=== PATIENT | female | born 1950 | race Caucasian/White ===

== ENCOUNTER 2017-11-21 08:00 | Day surgery (SDC) | payer OTHER ==
[2017-11-21 08:37] LABS: Absolute Lymphocytes (CBC) 1.7 K/uL (0.7-4.9); Absolute Monocytes 0.5 K/uL (0.1-1.3); Absolute Neutrophil 4.5 K/uL (1.8-8.0); Basophils % 0.6 % (0-1.3); Eosinophils % 9.4 % (0-4.4); Hematocrit 40.6 % (36.0-45.0); Lymphocytes % 22.1 % (15.3-44.8); MCH 31.2 pg (27.0-35.0); MCV 91.3 fL (80-100); MPV 7.3 fL (7.6-11.3); Monocytes % 7.3 % (3.3-12.3); RBC Red Blood Cell Count 4.45 M/uL (3.86-4.86)
[2017-11-21 08:45] LABS: Bicarbonate 26 mEq/L (21-31); Glucose Level 109 mg/dL (65-120); Sodium Level 139 mEq/L (135-145)
[2017-11-21 08:46] LABS: BUN Blood Urea Nitrogen 15 mg/dL (6-20)
--- NOTE | 2017-11-21 09:03 | RAD REPORT ---
EXAM DESCRIPTION: Bernardo Martines (2 Views)11/21/2017 8:33 am CLINICAL HISTORY: Rectal cancer/preop COMPARISON: October 2017 FINDINGS: The lungs appear clear of acute infiltrate. The heart is normal size IMPRESSION: No acute abnormalities displayed
[2017-11-21] MEDS ORDERED: Ringers Lactate 1,000 ML IV ONE (09:22)
[2017-11-21] MEDS ORDERED: CEFAZOLIN/SWI 1gm 1 GM/10 ML SYR ONE (09:24)
[2017-11-21] MEDS ORDERED: HYDROCODONE/APAP 10/325 TAB ONE (09:45)
[2017-11-21] MEDS ORDERED: LIDOCAINE 2% MPF 5 ML VIAL ONE (09:57)
[2017-11-21] MEDS ORDERED: PROPOFOL 200 MG/20 ML VIAL IV ONE (09:57)
[2017-11-21] MEDS ORDERED: FENTANYL CITR 100 MCG/2 ML ONE (09:58)
[2017-11-21] MEDS ORDERED: NS 0.9% VIAL 10 ML ONE ×2 (09:59→10:09)
[2017-11-21] MEDS ORDERED: LIDOCAINE 1% 20 ML MDV ONE (10:00)
[2017-11-21] MEDS ORDERED: MIDAZOLAM HCL 2 MG/2 ML INJ ONE (10:06)
[2017-11-21] MEDS: HEPARIN 5000 UNIT/ML 1 ML VIAL ONE ×2 (10:35→10:46)
--- NOTE | 2017-11-21 10:43 | EKG ---
Test Date: 2017-11-21 Test Time: 08:13:34 Travel Cota: GABRIEL MEASUREMENT RESULTS: Intervals: Rate: 80 DC: 196 QRSD: 140 QT: 434 QTc: 500 [place]: P: 40 DC: 196 QRS: -18 T: 77 INTERPRETIVE STATEMENTS: Normal sinus rhythm Possible Left atrial enlargement Left bundle branch block Abnormal ECG No previous ECG available for comparison Electronically Signed On 11-21-17 10:43:19 CDT by Jacoby Nielson
[2017-11-21] MEDS ORDERED: EPHEDRINE SULF 50 MG/5 ML SYR ONE (10:50)
--- NOTE | 2017-11-21 10:52 | RAD REPORT ---
EXAM DESCRIPTION: RAD - Fluoroscopy <1 Hour - 11/21/2017 10:47 am CLINICAL HISTORY: Venous catheter insertion. COMPARISON: None. FINDINGS: Fluoroscopic imaging is submitted from placement of a venous catheter. Details of the pro cedure not available.
[2017-11-21] MEDS ORDERED: ONDANSETRON 4 MG/2 ML VIAL ONE (10:54)
--- NOTE | 2017-11-21 11:23 | RAD REPORT ---
EXAM DESCRIPTION: RAD - Chest Single View - 11/21/2017 11:15 am CLINICAL HISTORY: Venous catheter placement. COMPARISON: 11/21/2017 FINDINGS: Portable technique limits examination quality. Right-sided venous catheter has tip in the SVC. Bilateral linear opacities most compatible with atele ctasis. No pneumothorax. The heart is normal in size. No displaced fractures. IMPRESSION: No postprocedure pneumothorax seen.
--- NOTE | 2017-11-21 12:57 | OP ---
Date of Procedure: 11/21/2017 Surgeon: Andres Hogan MD Preoperative Diagnosis: Rectal cancer. Postoperative Diagnosis: Rectal cancer. Procedure: Placement of right IJ Port-A-Cath and interpretation of intraoperative fluoroscopy. Estimated Blood Loss: Minimal. Specimen: None. Findings: Normal anatomy. Anesthesia: General. Complications: None. Disposition: The patient tolerated the procedure in stable condition and taken to recovery in good g eneral condition. Procedure In Detail: The patient was brought to the OR and placed in the supine position. General a nesthesia begun. The patient was prepped and draped in usual sterile fashion. Lidocaine 1% infiltra billy locally. An 18-gauge needle was used to access the right IJ vein. Guidewire was passed. Positi on was confirmed with fluoroscopy. A 3-cm counterincision made on the right anterior chest. Pocket created. Tunneling device used to tunnel the catheter between the 2 wounds. Seldinger technique use d. Tip of the catheter placed in the SVC under fluoroscopy, cut to appropriate size, and attached to the Port-A-Cath device. Then, the Port-A-Cath device was attached to the subcutaneous tissue with 3 -0 Vicryl and then wound closed with 3-0 chromic. Heparin flush used. Good blood flow obtained and packed with heparin as well. Sterile dressing was applied. The patient was awakened and taken to Re covery in good general condition. Chest x-ray has been ordered. Disposition: Home. Condition: Stable. Discharge Instructions: Resume home medications and diet. Activity as tolerated. No heavy lifting. Remove outer dressing in 2 days. Shower. Keep wound clean and dry. Keep Steri-Strips on at all t imes. [facility] as per appointment. Follow up in my office in 2 weeks. Call f or appointment. /MODL Voice ID: [id number] Report ID: [id number]
== END 2017-11-21 12:35 | disposition home or self-care (01) ==
LOC: OR 08:00
PROVIDERS: ATTEND Surgery
PROC: 0JH60WZ Insertion of Totally Implantable Vascular Access Device into Chest Subcutaneous Tissue and Fascia, Open Approach (ICD-10-PCS; principal; 2017-11-21 10:30)
DX: C20 Malignant neoplasm of rectum (principal); E11.9 Type 2 diabetes mellitus without complications; I10 Essential (primary) hypertension; J44.9 Chronic obstructive pulmonary disease, unspecified; F17.200 Nicotine dependence, unspecified, uncomplicated
CPT/HCPCS: 36415; 36561; 71045; 71046; 80048; 82962; 85025; 93005; C1788 ×2; J0690; J1644; J2250; J2405; J3010; 76000

== ENCOUNTER 2017-12-10 16:56 | Inpatient (IN) | payer OTHER ==
[2017-12-10] MEDS ORDERED: NA CHLORIDE 0.9% 1,000 ML ONE ×2 (18:45→19:35)
[2017-12-10] MEDS ORDERED: NA CHLORIDE 0.9% 0 ML ONE (18:45)
--- NOTE | 2017-12-10 19:34 | RAD REPORT ---
EXAM DESCRIPTION: CT - Stone Protocol - 12/10/2017 7:17 pm CLINICAL HISTORY: Abdominal pain, diarrhea, fever and chills, history of radiation therapy for anal rectal carcinoma COMPARISON: PET-CT November 15, CT study November 02 TECHNIQUE: Axial [address] imaging of the abdomen and pelvis was performed without IV contrast. No IV contrast was given because of allergy, abnormal renal function, patient refusal or physician re quest. Oral contrast was given. All CT scans are performed using dose optimization technique as appropriate and may include automated exposure control or mA/KV adjustment according to patient size. FINDINGS: Lung parenchymal stranding is seen in the posterior lingula at the lung base. This is prob ably a combination of pneumonia and subsegmental atelectasis. There is minimal posteromedial right ba se stranding that is favored to be atelectasis. No pneumothorax or pleural effusion. No significant p ericardial finding. The liver, spleen and pancreas show no suspicious findings on non-contrast imaging. Cholecystectomy c lips are present. No biliary tree dilatation. No hydronephrosis present. No obstructing calculus. Calcifications in each renal hilum and in the mid right kidney could be vascular or nonobstructing ureteral calculi. Pattern is not significantly diff erent from the November imaging. No significant adrenal finding. Isodense renal masses and pyelonephrit is cannot be excluded in the absence of IV contrast. The urinary bladder is without significant findi ng. No gastric dilatation or gastric wall thickening. Small hiatal hernia is present. No dilated large or small bowel. No appendicitis or emergent GI process. Anal rectal wall thickening is again noted. Thi s has improved from prior imaging. No suspicious perirectal lymphadenopathy or mass. No bulky lymphad enopathy, omental thickening or other worrisome finding. Disc and bony degenerative changes are present. Fusion hardware is in place. IMPRESSION: No bowel obstruction, free air or surgically emergent finding. There is anal wall thicke winter matching malignancy history. This is improved from prior imaging. No acute or GI process identifiable. Patchy pneumonia changes in the posterior lingula at the left base. Full assessment is limited is the absence of IV contrast.
[2017-12-10] MEDS ORDERED: VANCOMYCIN/NS 1 gm 1 GM/250 ML BAG ONE (19:35)
[2017-12-10] MEDS ORDERED: FAMOTIDINE 20 MG/2 ML VIAL IV ONE (19:35)
[2017-12-10] MEDS ORDERED: NA CHLORIDE 0.9% 100 ML IV ONE (19:40)
[2017-12-10] MEDS ORDERED: CEFEPIME 2 GM VIAL ONE (19:40)
[2017-12-10 20:09] LABS: Absolute Lymphocytes (CBC) 0.4 K/uL (0.7-4.9); Absolute Monocytes 0.4 K/uL (0.1-1.3); Absolute Neutrophil 0.7 K/uL (1.8-8.0); Basophils % 0.2 % (0-1.3); Eosinophils % 6.4 % (0-4.4); Hematocrit 28.2 % (36.0-45.0); Lymphocytes % 26.7 % (15.3-44.8); MCH 30.5 pg (27.0-35.0); MCV 88.4 fL (80-100); MPV 7.8 fL (7.6-11.3); Monocytes % 26.7 % (3.3-12.3); RBC Red Blood Cell Count 3.19 M/uL (3.86-4.86)
--- NOTE | 2017-12-10 20:14 | RAD REPORT ---
EXAM DESCRIPTION: RAD - Chest Single View - 12/10/2017 7:08 pm CLINICAL HISTORY: Cough, hypotension, COPD COMPARISON: November 21 TECHNIQUE: AP portable chest image was obtained 1903 hours . FINDINGS: Lungs are clear. Heart and vasculature are normal. No measurable pleural effusion and no p neumothorax. No gross bony abnormality seen. No acute aortic finding. Right-sided Port-A-Cath is in p lace. Interstitial stranding seen November 18 has cleared. IMPRESSION: No acute cardiopulmonary process.
[2017-12-10 20:20] LABS: Glucose Level 96 mg/dL (65-120)
[2017-12-10 20:24] LABS: Protime INR 1.21
[2017-12-10 20:27] LABS: ALT/SGPT 18 IU/L (10-60); AST/SGOT 27 IU/L (10-42); Albumin 2.9 g/dL (3.2-5.5); Alkaline Phosphatase 71 IU/L (42-121); BUN Blood Urea Nitrogen 20 mg/dL (6-20); Bilirubin Direct 0.2 mg/dL (0-0.2); Bilirubin Total 0.7 mg/dL (0.3-1.2); Creatine Phosphokinase 650 IU/L (22-269); Protein, Total 5.6 g/dL (6.0-8.3)
[2017-12-10 20:28] LABS: Bicarbonate 23 mEq/L (21-31); Magnesium 1.2 mg/dL (1.8-2.5); Sodium Level 122 mEq/L (135-145)
[2017-12-10 20:30] LABS: CKMB Creatine Kinase MB 9.1 ng/ml (0.3-4.0)
--- NOTE | 2017-12-10 20:37 | EDPHYS ---
Physician Documentation [facility] Name: Jess Terry Age: 67 yrs Sex: Female : 1950 Arrival Date: 12/10/2017 Time: 17:00 Bed 17 Private MD: Dean Natarajan R ED Physician Gary Mazariegos HPI: 12/10 18:48 This 67 yrs old Female presents to ER via Ambulatory with complaints of Blood erika Pressure Problem. 18:48 This 67 yrs old Female presents to ER via Ambulatory with complaints of Blood erika Pressure Problem. 18:48 The patient presents with. Onset: The symptoms/episode began/occurred 2 day(s) ago. The erika symptoms do not radiate. Historical: - Allergies: 17:21 No Known Allergies; hj - Home Meds: 17:21 Tylenol Extra Strength 500 mg oral tab 1 tab every 4-6 hours [Active]; hj hydrocodone-acetaminophen 10-325 mg oral tab 1 tab every 4-6 hours [Active]; gabapentin 600 mg oral tab 1 tab 3 times per day [Active]; tizanidine 2 mg oral cap 2 caps every 6 hours [Active]; atorvastatin 40 mg oral tab 1 tab once daily [Active]; duloxetine 60 mg oral cpDR 1 cap once daily [Active]; glimepiride 1 mg Oral tab 1 tab once daily [Active]; meloxicam 7.5 mg oral tab 1 tab once daily [Active]; omeprazole 20 mg Oral cpDR 1 cap once daily [Active]; valsartan 320 mg oral tab 1 tab once daily [Active]; trazodone 100 mg Oral tab 1 tab 2 times per day [Active]; Symbicort 80-4.5 mcg/actuation inhalation HFAA 2 puffs 2 times per day [Active]; - PMHx: 17:21 Hypertension; Hyperlipidemia; COPD; hj - PSHx: 17:21 back; Hysterectomy; hj - Immunization history:: Adult Immunizations up to date. - Social history:: Smoking status: Patient uses tobacco products, smokes one-half pack cigarettes per day. ROS: 18:50 Constitutional: Negative for fever, chills, and weight loss, Eyes: Negative for injury, erika pain, redness, and discharge, ENT: Negative for injury, pain, and discharge, Neck: Negative for injury, pain, and swelling, Cardiovascular: Negative for chest pain, palpitations, and edema. 18:50 Respiratory: Positive for cough, shortness of breath, wheezing, expiratory. 18:50 Abdomen/GI: Positive for abdominal pain, nausea. 18:50 Back: Positive for flank pain, bilaterally. Exam: 18:50 Constitutional: This is a well developed, well nourished patient who is awake, alert, erika and in no acute distress. Head/Face: Normocephalic, atraumatic. Eyes: Pupils equal round and reactive to light, extra-ocular motions intact. Lids and lashes normal. Conjunctiva and sclera are non-icteric and not injected. Cornea within normal limits. Periorbital areas with no swelling, redness, or edema. ENT: Nares patent. No nasal discharge, no septal abnormalities noted. Tympanic membranes are normal and external auditory canals are clear. Oropharynx with no redness, swelling, or masses, exudates, or evidence of obstruction, uvula midline. Mucous membranes moist. Neck: Trachea midline, no thyromegaly or masses palpated, and no cervical lymphadenopathy. Supple, full range of motion without nuchal rigidity, or vertebral point tenderness. No Meningismus. Chest/axilla: Normal chest wall appearance and motion. Nontender with no deformity. No lesions are appreciated. Back: No spinal tenderness. No costovertebral tenderness. Full range of motion. Skin: Warm, dry with normal turgor. Normal color with no rashes, no lesions, and no evidence of cellulitis. MS/ Extremity: Pulses equal, no cyanosis. Neurovascular intact. Full, normal range of motion. Neuro: Awake and alert, GCS 15, oriented to person, place, time, and situation. Cranial nerves II-XII grossly intact. Motor strength 5/5 in all extremities. Sensory grossly intact. Cerebellar exam normal. Normal gait. Psych: Awake, alert, with orientation to person, place and time. Behavior, mood, and affect are within normal limits. 18:50 Cardiovascular: Rate: tachycardic, Rhythm: regular, Heart sounds: normal, Edema: is not appreciated, JVD: is not appreciated. 18:50 Respiratory: the patient does not display signs of respiratory distress, Respirations: normal, Breath sounds: bronchial sounds, decreased breath sounds, rhonchi, wheezing: inspiratory expiratory Vital Signs: 17:14 BP 103 / 45; Pulse 105; Resp 20; Temp 98.0; Pulse Ox 95% on R/A; Weight 64.55 kg; hj Height 5 ft. 4 in. (162.56 cm); Pain 6/10; 20:00 BP 113 / 62; Pulse 93; Resp 27; Pulse Ox 91% ; cb2 21:00 BP 104 / 49; Pulse 86; Resp 29; Pulse Ox 96% ; cb2 21:55 BP 100 / 57; Pulse 93; Resp 24; Pulse Ox 91% ; cb2 23:06 BP 155 / 69; Pulse 93; Resp 24 S; Pulse Ox 94% on 2 lpm NC; jd3 17:14 Body Mass Index 24.43 (64.55 kg, 162.56 cm) hj MDM: 18:37 Patient medically screened. [facility] 18:50 Data reviewed: vital signs, nurses notes, lab test result(s), EKG, radiologic studies, [facility] CT scan, plain films. 12/10 18:37 Order name: Basic Metabolic Panel; Complete Time: 20:48 [facility] 12/10 18:37 Order name: BNP; Complete Time: 20:36 [facility] 12/10 18:37 Order name: CBC with Diff [facility] 12/10 18:37 Order name: Ckmb; Complete Time: 20:48 [facility] 12/10 18:37 Order name: CPK; Complete Time: 20:48 [facility] 12/10 18:37 Order name: LFT's; Complete Time: 20:48 [facility] 12/10 18:37 Order name: Magnesium; Complete Time: 20:48 [facility] 12/10 18:37 Order name: PT-INR; Complete Time: 20:36 [facility] 12/10 18:37 Order name: Ptt, Activated; Complete Time: 20:36 [facility] 12/10 18:37 Order name: Troponin (emerg Dept Use Only); Complete Time: 20:36 [facility] 12/10 18:39 Order name: Lipase; Complete Time: 20:48 [facility] 12/10 18:39 Order name: Urine Culture [facility] 12/10 18:48 Order name: Blood Culture Adult (2) [facility] 12/10 18:48 Order name: Lactate; Complete Time: 20:23 [facility] 12/10 18:37 Order name: XRAY Chest (1 view); Complete Time: 20:23 [facility] 12/10 18:48 Order name: Procalcitonin; Complete Time: 21:18 [facility] 12/10 18:48 Order name: Type And Screen; Complete Time: 21:18 [facility] 12/10 18:48 Order name: CT Stone Protocol; Complete Time: 19:38 [facility] 12/10 20:24 Order name: Manual Differential EDMN 12/10 20:25 Order name: Flu; Complete Time: 21:18 [facility] 12/10 20:46 Order name: Phosphorus; Complete Time: 21:18 [facility] 12/10 20:48 Order name: Osmolality, Serum [facility] 12/10 20:48 Order name: Urine Osmolality [facility] 12/10 20:48 Order name: Urine Sodium Random [facility] 12/10 20:55 Order name: ABO/RH no charge; Complete Time: 21:18 EDMN 12/10 21:50 Order name: Urine Dipstick--Ancillary (enter results) lp1 12/10 21:57 Order name: Urine Dipstick-Ancillary EDMN 12/10 18:37 Order name: EKG; Complete Time: 18:38 [facility] 12/10 18:37 Order name: Cardiac monitoring; Complete Time: 20:05 [facility] 12/10 18:37 Order name: EKG - Nurse/Tech; Complete Time: 20:13 [facility] 12/10 18:37 Order name: IV Saline Lock; Complete Time: 20:05 [facility] 12/10 18:37 Order name: Labs collected and sent; Complete Time: 20:05 [facility] 12/10 18:37 Order name: O2 Per Protocol; Complete Time: 20:05 [facility] 12/10 18:37 Order name: O2 Sat Monitoring; Complete Time: 20:05 [facility] 12/10 18:37 Order name: Urine Dipstick-Ancillary (obtain specimen); Complete Time: 21:48 [facility] 12/10 20:45 Order name: CONS Physician Consult EDMS Administered Medications: Discontinued: NS 0.9% 1000 ml IV at 125 ml/hr continuous 20:02 Drug: Pepcid 20 mg Route: IVP; Site: Port-a-cath; jd3 21:08 Follow up: Response: No adverse reaction jd3 20:03 Drug: NS 0.9% 1000 ml Route: IV; Rate: 125 ml/hr; Site: Port-a-cath; jd3 20:47 Follow up: Response: No adverse reaction; IV Status: Order to discontinue infusion jd3 20:03 Drug: NS 0.9% 500 ml Volume: 500 ml; Route: IV; Rate: 1 bolus; Site: [facility]; jd3 21:39 Follow up: Response: No adverse reaction; IV Status: Completed infusion; IV Intake: jd3 500ml 20:03 Drug: NS 0.9% 500 ml Route: IV; Rate: bolus; Site: [facility]; jd3 21:40 Follow up: Response: No adverse reaction; IV Status: Completed infusion; IV Intake: jd3 500ml 20:39 Drug: Cefepime 2 grams Route: IVPB; Rate: 200 ml/hr; [facility] Over: 30 mins[facility] 21:08 Follow up: Response: No adverse reaction; IV Status: Completed infusion jd3 20:49 CANCELLED (Duplicate Order): NS 0.9% with KCl 20 mEq/L 1000 ml IV at 125 ml/hr erika continuous 21:38 Drug: vancoMYCIN 1 grams Route: IVPB; Infused Over: 2 hrs; Site: [facility]; jd3 22:29 Follow up: Response: No adverse reaction; IV Status: Infusion continued upon admission jd3 21:38 Drug: NS 0.9% with KCl 20 mEq/L 1000 ml Route: IV; Rate: 100 ml/hr; [facility]; jd3 22:27 Follow up: Response: No adverse reaction; IV Status: Infusion continued upon admission jd3 21:39 Drug: Potassium Chloride 40 mEq Route: PO; jd3 22:28 Follow up: Response: No adverse reaction jd3 21:53 Drug: Magnesium Sulfate 2 grams Route: IVPB; Infused Over: 2 hrs; [facility]; jd3 22:27 Follow up: Response: No adverse reaction; IV Status: Infusion continued upon admission jd3 21:54 Drug: Potassium Chloride 20 mEq Route: IV; Rate: per protocol; [facility]; jd3 22:27 Follow up: Response: No adverse reaction; IV Status: Infusion continued upon admission jd3 22:00 CANCELLED (Physician Discretion): Neupogen 300 mcg Sub-Q once jd3 22:30 Not Given (Physician Discretion; will be given on floor after admission): Potassium jd3 Phosphate 15 mmol IV at per protocol once; dose as phosphate; infuse over 4-6 hours (mix in 250 mL NS) Disposition: 04/09/18 20:36 Hospitalization ordered by Dean Natarajan for Inpatient Admission. Preliminary diagnosis are Neutropenia, Anemia, unspecified, Weakness, Other pneumonia, unspecified organism, Thrombocytopenia, unspecified, Hypokalemia, Hypomagnesemia, Hypo-osmolality and hyponatremia. - Bed requested for Telemetry/MedSurg (Inpatient). - Status is Inpatient Admission. jd3 - Condition is Stable. - Problem is new. - Symptoms have improved. UTI on Admission? No Signatures: Dispatcher [employer] EDGary Navarro MD MD cha Munoz, Edgar, AUTOMOBILE LOCATOR AUTOMOBILE LOCATOR em Chaparro Savage, RN RN Rin Grant, RN RN Jamil Xiao RN RN jd3 Corrections: (The following items were deleted from the chart) 20:49 20:46 NS 0.9% with KCl 20 mEq/L 1000 ml IV at 125 ml/hr continuous ordered. erika james 22:00 20:25 Neupogen 300 mcg Sub-Q once ordered. erika jd3 22:00 22:00 Neupogen 300 mcg Sub-Q once ordered. jzoey jd3
--- NOTE | 2017-12-10 20:37 | ER ---
Nurse's Notes [facility] Name: Jess Terry Age: 67 yrs Sex: Female : 1950 Arrival Date: 12/10/2017 Time: 17:00 Bed 17 Private MD: Dean Natarajan R Diagnosis: Neutropenia;Anemia, unspecified;Weakness;Other pneumonia, unspecified organism;Thrombocytopenia, unspecified;Hypokalemia;Hypomagnesemia;Hypo-osmolality and hyponatremia Presentation: 12/10 17:15 Presenting complaint: Patient states: had a radiation tx this AM at the cancer center, hj BP was 80/40; was given a bag of fluid; at home, 97/49; complaints of dizziness; reports diarrhea; denies fever, reports chills;. Transition of care: patient was not received from another setting of care. Onset of symptoms was December 10, 2017. Care prior to arrival: None. 17:15 Method Of Arrival: Ambulatory 17:15 Acuity: MARE 3 hj Triage Assessment: 17:21 General: Appears in no apparent distress. uncomfortable, Behavior is calm, cooperative, hj appropriate for age. Pain: Complains of pain in back. Historical: - Allergies: 17:21 No Known Allergies; hj - Home Meds: 17:21 Tylenol Extra Strength 500 mg oral tab 1 tab every 4-6 hours [Active]; hj hydrocodone-acetaminophen 10-325 mg oral tab 1 tab every 4-6 hours [Active]; gabapentin 600 mg oral tab 1 tab 3 times per day [Active]; tizanidine 2 mg oral cap 2 caps every 6 hours [Active]; atorvastatin 40 mg oral tab 1 tab once daily [Active]; duloxetine 60 mg oral cpDR 1 cap once daily [Active]; glimepiride 1 mg Oral tab 1 tab once daily [Active]; meloxicam 7.5 mg oral tab 1 tab once daily [Active]; omeprazole 20 mg Oral cpDR 1 cap once daily [Active]; valsartan 320 mg oral tab 1 tab once daily [Active]; trazodone 100 mg Oral tab 1 tab 2 times per day [Active]; Symbicort 80-4.5 mcg/actuation inhalation HFAA 2 puffs 2 times per day [Active]; - PMHx: 17:21 Hypertension; Hyperlipidemia; COPD; hj - PSHx: 17:21 back; Hysterectomy; hj - Immunization history:: Adult Immunizations up to date. - Social history:: Smoking status: Patient uses tobacco products, smokes one-half pack cigarettes per day. Screenin:16 Abuse screen: Denies threats or abuse. Nutritional screening: No deficits noted. em Tuberculosis screening: No symptoms or risk factors identified. Fall Risk None identified. Assessment: 19:13 General: Appears uncomfortable, ill, Behavior is calm, cooperative, Reports chills for em fever for. Pain: Complains of pain in back Pain does not radiate. Pain currently is 8 out of 10 on a pain scale. Pain began 2-3 days ago. Neuro: Level of Consciousness is awake, alert, obeys commands, Oriented to person, place, time, situation. Cardiovascular: Capillary refill < 3 seconds Patient's skin is warm and dry. Respiratory: Airway is patent Respiratory effort is even, unlabored, Respiratory pattern is regular, symmetrical, Breath sounds are diminished in right posterior upper lobe and right posterior middle lobe Onset: The symptoms/episode began/occurred yesterday, the patient has mild shortness of breath. GI: Abdomen is round Bowel sounds present X 4 quads. Abd is soft X 4 quads Abdomen is tender to palpation in suprapubic area. : No signs and/or symptoms were reported regarding the genitourinary system. EENT: No signs and/or symptoms were reported regarding the EENT system. Derm: Skin is intact, Skin is pink, warm \T\ dry. Musculoskeletal: Range of motion: intact in all extremities. 20:27 Reassessment: Patient appears in no apparent distress at this time. No changes from jd3 previously documented assessment. Patient and/or family updated on plan of care and expected duration. Pain level reassessed. Patient is alert, oriented x 3, equal unlabored respirations, skin warm/dry/pink. 21:30 Reassessment: Patient appears in no apparent distress at this time. Patient and/or jd3 family updated on plan of care and expected duration. Pain level reassessed. Patient is alert, oriented x 3, equal unlabored respirations, skin warm/dry/pink. 22:30 Reassessment: Patient appears in no apparent distress at this time. Patient and/or jd3 family updated on plan of care and expected duration. Pain level reassessed. Patient is alert, oriented x 3, equal unlabored respirations, skin warm/dry/pink. 23:03 Reassessment: Patient appears in no apparent distress at this time. Patient and/or jd3 family updated on plan of care and expected duration. Pain level reassessed. Patient is alert, oriented x 3, equal unlabored respirations, skin warm/dry/pink. Patient states feeling better. Vital Signs: 17:14 BP 103 / 45; Pulse 105; Resp 20; Temp 98.0; Pulse Ox 95% on R/A; Weight 64.55 kg; hj Height 5 ft. 4 in. (162.56 cm); Pain 6/10; 20:00 BP 113 / 62; Pulse 93; Resp 27; Pulse Ox 91% ; cb2 21:00 BP 104 / 49; Pulse 86; Resp 29; Pulse Ox 96% ; cb2 21:55 BP 100 / 57; Pulse 93; Resp 24; Pulse Ox 91% ; cb2 23:06 BP 155 / 69; Pulse 93; Resp 24 S; Pulse Ox 94% on 2 lpm NC; jd3 17:14 Body Mass Index 24.43 (64.55 kg, 162.56 cm) ED Course: 17:00 Patient arrived in ED. mr 17:00 Dean Natarajan MD is Private Physician. mr 17:17 Triage completed. hj 17:21 Arm band placed on right wrist. hj 18:27 Marcos Noyola LVN is Primary Nurse. em 18:37 Gary Mazariegos MD is Attending Physician. [facility] 18:[address] nj 19:07 X-ray completed. Portable x-ray completed in exam room. Patient tolerated procedure kc2 well. 19:08 XRAY Chest (1 view) In Process Unspecified. EDMS 19:10 Report given to ISAURO Negron. em 19:17 CT Stone Protocol In Process Unspecified. EDMS 19:17 Patient has correct armband on for positive identification. Bed in low position. Call em light in reach. Side rails up X2. Adult w/ patient. 19:17 No provider procedures requiring assistance completed. em 19:24 Primary Nurse role handed off by Marcos Noyola LVN rg2 19:25 Jamil Coles RN is Primary Nurse. jd3 19:43 Accessed Port-a-Cath. using accessed w/ # 20 Landeros needle, ,sterile technique, Clean \T\ bs1 dry. Dressing intact. Good blood return. Flushes easily. 20:13 EKG done, by ED staff, reviewed by Gary Mazariegos MD. cb2 20:22 Notified ED physician of a critical lab result(s). WBC 1.7, Platelets 39. lp1 20:34 Dean Natarajan MD is Hospitalizing Provider. erika 20:46 Notified ED physician of a critical lab result(s). potassium of 2.6 and magnesium of bb 1.2 Dr Mazariegos notified. 20:48 Adolph Newman MD is Hospitalizing Provider. erika 21:18 Hospitalizing Provider role handed off by Adolph Newman MD erika 21:18 Dean Natarajan MD is Hospitalizing Provider. erika 23:02 Patient admitted, IV remains in place. jd3 Administered Medications: Discontinued: NS 0.9% 1000 ml IV at 125 ml/hr continuous 20:02 Drug: Pepcid 20 mg Route: IVP; Site: Port-a-cath; jd3 21:08 Follow up: Response: No adverse reaction jd3 20:03 Drug: NS 0.9% 1000 ml Route: IV; Rate: 125 ml/hr; Site: Port-a-cath; jd3 20:47 Follow up: Response: No adverse reaction; IV Status: Order to discontinue infusion jd3 20:03 Drug: NS 0.9% 500 ml Volume: 500 ml; Route: IV; Rate: 1 bolus; Site: Port-a-cath; jd3 21:39 Follow up: Response: No adverse reaction; IV Status: Completed infusion; IV Intake: jd3 500ml 20:03 Drug: NS 0.9% 500 ml Route: IV; Rate: bolus; Site: Port-a-cath; jd3 21:40 Follow up: Response: No adverse reaction; IV Status: Completed infusion; IV Intake: jd3 500ml 20:39 Drug: Cefepime 2 grams Route: IVPB; Rate: 200 ml/hr; Infused Over: 30 mins; Site: [facility] Port-a-cath; 21:08 Follow up: Response: No adverse reaction; IV Status: Completed infusion jd3 20:49 CANCELLED (Duplicate Order): NS 0.9% with KCl 20 mEq/L 1000 ml IV at 125 ml/hr erika continuous 21:38 Drug: vancoMYCIN 1 grams Route: IVPB; Infused Over: 2 hrs; Site: Port-a-cath; jd3 22:29 Follow up: Response: No adverse reaction; IV Status: Infusion continued upon admission jd3 21:38 Drug: NS 0.9% with KCl 20 mEq/L 1000 ml Route: IV; Rate: 100 ml/hr; Site: Port-a-cath; jd3 22:27 Follow up: Response: No adverse reaction; IV Status: Infusion continued upon admission jd3 21:39 Drug: Potassium Chloride 40 mEq Route: PO; jd3 22:28 Follow up: Response: No adverse reaction jd3 21:53 Drug: Magnesium Sulfate 2 grams Route: IVPB; Infused Over: 2 hrs; Site: Port-a-cath; jd3 22:27 Follow up: Response: No adverse reaction; IV Status: Infusion continued upon admission jd3 21:54 Drug: Potassium Chloride 20 mEq Route: IV; Rate: per protocol; Site: Port-a-cath; jd3 22:27 Follow up: Response: No adverse reaction; IV Status: Infusion continued upon admission jd3 22:00 CANCELLED (Physician Discretion): Neupogen 300 mcg Sub-Q once jd3 22:30 Not Given (Physician Discretion; will be given on floor after admission): Potassium jd3 Phosphate 15 mmol IV at per protocol once; dose as phosphate; infuse over 4-6 hours (mix in 250 mL NS) Intake: 21:39 IV: 500ml; Total: 500ml. jd3 21:40 IV: 500ml; Total: 1000ml. jd3 Outcome: 20:36 Decision to Hospitalize by Provider. erika 23:02 Admitted to Med/surg accompanied by tech, via wheelchair, room 418, with oxygen, with jd3 chart, Report called to Hilda BOX 23:02 Condition: stable 23:02 Instructed on the need for admit, Demonstrated understanding of instructions. 23:03 Patient left the ED. jd3 Signatures: Dispatcher [employer] Adam Yu rg2 Gary Mazariegos MD MD cha Rivera, Maria mr Noyola, Marcos, METAL SORTER METAL SORTER em Lila Goldman RN RN bb Gracie Chavez RN RN lp1 Chaparro Savage RN RN hj Carr, Kelsie kc2 Jatin Zazueta Christian cb2 Davies, Jonathon, RN RN jd3 Lynn Hargrove RN RN bs1 Corrections: (The following items were deleted from the chart) 17:21 17:14 BP 99 / 48; Pulse 105bpm; Resp 20bpm; Pulse Ox 95% RA; Temp 98.0F; 64.55 kg; hj Height 5 ft. 4 in.; BMI: 24.4; Pain 6/10; hj
[2017-12-10] MEDS ORDERED: D50W 25 GM/50 ML SYRINGE IV PRN (20:44)
[2017-12-10] MEDS ORDERED: GLUCAGON 1 MG/VIAL IM PRN (20:44)
[2017-12-10 20:45] LABS: Lipase < 10 U/L (22-51)
[2017-12-10 20:46] LABS: Potassium 2.6 mEq/L (3.6-5.0)
[2017-12-10] MEDS ORDERED: SODIUM CHLORIDE 0.9% 10ML INJ IV PRN (20:51)
[2017-12-10] MEDS: INSULIN -REGULAR HUMAN 50 UNIT/0.5 ML ML SQ SCH (21:00)
[2017-12-10] MEDS: NS KCL 20MEQ 20 MEQ/1,000 ML BAG IV SCH (21:00)
[2017-12-10] MEDS ORDERED: MORPHINE 2 MG/ML SYR IV PRN (21:20)
[2017-12-10] MEDS ORDERED: ACETAMINOPHEN 500 MG TAB PO PRN (21:20)
[2017-12-10] MEDS ORDERED: NS KCL 20MEQ 1,000 ML IV ONE (21:21)
[2017-12-10] MEDS ORDERED: Magnesium Sulfate 2gm IVPB 2 G/50 ML BAG IV ONE ×2 (21:21→21:23)
[2017-12-10] MEDS ORDERED: POTASSIUM CL SA 10 MEQ TAB PO ONE (21:21)
[2017-12-10] MEDS ORDERED: KCL 20 MEQ/100 mL IVPB 20 MEQ/100 ML BAG IV ONE (21:22)
[2017-12-10] MEDS ORDERED: VANCOMYCIN/NS 1 gm 1 GM/250 ML BAG IVPB SCH (21:30)
[2017-12-10 21:57] LABS: Urine Blood 1+ (NEG); Urine Glucose NEGATIVE (NEG); Urine Protein NEGATIVE (NEG)
[2017-12-10] MEDS ORDERED: NA CHLORIDE 0.9% 1,000 ML IV SCH (22:00)
[2017-12-10] MEDS ORDERED: KCL 20 MEQ/100 mL IVPB 20 MEQ/100 ML BAG IV SCH (22:00)
[2017-12-10 22:48] LABS: Toxic Granulation 3+
[2017-12-10 22:49] LABS: Blood Morphology Comment NOT SEEN (NOT SEEN)
[2017-12-10 22:50] LABS: Platelet Estimate DECR
[2017-12-10] MEDS ORDERED: POTASSIUM PHOS IN 0.9 % NACL 15 MMOL/250 ML BAG IV ONE (22:57)
[2017-12-10] MEDS ORDERED: TBO-FILGRASTIM 300 MCG/0.5 ML SYR SQ ONE (23:00)
[2017-12-11] MEDS: ACETAMINOPHEN 325 MG TABLET PO PRN ×2 (00:39→11:07)
[2017-12-11] MEDS: MAGNESIUM OXIDE 400 MG TAB PO SCH ×2 (00:39→08:51)
[2017-12-11 00:54] LABS: Potassium 3.2 mEq/L (3.6-5.0)
[2017-12-11] MEDS: IPRATROPIUM BROM 0.5MG/2.5ML NEB SCH ×4 (01:34→20:27)
[2017-12-11] MEDS: LEVALBUTEROL 1.25 MG/3 ML NEB NEB SCH ×4 (01:35→20:27)
[2017-12-11] MEDS: NS KCL 20MEQ 20 MEQ/1,000 ML BAG IV SCH ×3 (05:46→22:06)
[2017-12-11 05:54] LABS: Absolute Lymphocytes (CBC) 0.3 K/uL (0.7-4.9); Absolute Monocytes 0.4 K/uL (0.1-1.3); Absolute Neutrophil 1.1 K/uL (1.8-8.0); Basophils % 0.1 % (0-1.3); Eosinophils % 1.3 % (0-4.4); Hematocrit 27.2 % (36.0-45.0); Lymphocytes % 16.6 % (15.3-44.8); MCH 30.3 pg (27.0-35.0); MCV 90.4 fL (80-100); MPV 7.8 fL (7.6-11.3); Monocytes % 21.3 % (3.3-12.3); RBC Red Blood Cell Count 3.01 M/uL (3.86-4.86)
[2017-12-11] MEDS ORDERED: VANCOMYCIN 1.5 GM in NA CHLORIDE 0.9% 500 ML IVPB SCH (06:00)
[2017-12-11 06:03] LABS: ALT/SGPT 18 IU/L (10-60); AST/SGOT 24 IU/L (10-42); Albumin 2.6 g/dL (3.2-5.5); Alkaline Phosphatase 66 IU/L (42-121); BUN Blood Urea Nitrogen 15 mg/dL (6-20); Bicarbonate 22 mEq/L (21-31); Bilirubin Total 0.5 mg/dL (0.3-1.2); Glucose Level 98 mg/dL (65-120); Potassium 3.4 mEq/L (3.6-5.0); Protein, Total 5.1 g/dL (6.0-8.3); Sodium Level 133 mEq/L (135-145)
[2017-12-11] MEDS ORDERED: DIPHENOX/ATROP SULF 1 TAB PO ONE (06:41)
--- NOTE | 2017-12-11 06:55 | EKG ---
Test Date: 2017-12-10 Test Time: 20:09:26 Aerodynamic Consultant: KIAH MEASUREMENT RESULTS: Intervals: Rate: 92 [place]: 200 QRSD: 150 QT: 426 QTc: 526 [place]: P: 55 [place]: 200 QRS: -15 T: 112 INTERPRETIVE STATEMENTS: Normal sinus rhythm Possible Left atrial enlargement Left bundle branch block Abnormal ECG Compared to ECG 11/21/2017 08:13:34 No significant changes Electronically Signed On 12-11-17 06:55:01 CDT by Jacoby Nielson
[2017-12-11] MEDS: KCL 20 MEQ/100 mL IVPB 20 MEQ/100 ML BAG IV SCH ×2 (06:58→08:52)
[2017-12-11] MEDS: INSULIN -REGULAR HUMAN 50 UNIT/0.5 ML ML SQ SCH ×3 (07:30→17:53)
[2017-12-11] MEDS ORDERED: GLUCAGON 1 MG/VIAL IM PRN ×2 (08:42→23:53)
[2017-12-11] MEDS ORDERED: D50W 25 GM/50 ML SYRINGE IV PRN ×2 (08:42→23:53)
[2017-12-11] MEDS: PANTOPRAZOLE 40 MG INJ IVP SCH (08:51)
[2017-12-11] MEDS ORDERED: TBO-FILGRASTIM 300 MCG/0.5 ML SYR SQ SCH (09:00)
[2017-12-11] MEDS ORDERED: PNEUMOCOCCAL VACCINE 0.5 ML IMVAC ONE (09:00)
[2017-12-11] MEDS ORDERED: CEFEPIME 1 GM/VIAL IV SCH (09:00)
[2017-12-11] MEDS ORDERED: CEFEPIME/SWI 1gm 1 GM/10 ML SYR IV SCH (09:00)
[2017-12-11] MEDS ORDERED: CEFEPIME 2 GM VIAL IV SCH (09:00)
[2017-12-11] MEDS: VANCOMYCIN 1.25 GM in NA CHLORIDE 0.9% 250 ML IVPB SCH (12:44)
[2017-12-11] MEDS: DIPHENOX/ATROP SULF 1 TAB PO PRN ×2 (12:44→22:10)
--- NOTE | 2017-12-11 17:17 | P.PN ---
Date of Service: 12/11/17 (Oncology) Pt seen and examined this evening at 4.15 pm. Daughter at bedside. Pt known to me from clinic. 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 She is on 5-FU/ mitomycin regimen (received 1st dose chemo (11/26-11/29) and getting daily RT (Mon -Fri). She was advised to go to ER when daughter called the clinic yesterday reporting a BP of 80/60 at home with a low low grade fever of 100.2F. She has been having diarrhea alternating with constipation and using imodium and then colace based on her s/s. Vague hisotrian and not a good informant of symptoms. She received one dose of granix last night and has been started on IV antibotics and IVF as well. CBC this morning shows an ANC of 1100 (from 700 on 12/10/17), Hb 9.[place] [address] ([place] [address]) Pt was sleeping but woke up to hear the conversation. She feels much better than yesterday but still feels weak. No nausea or vomiting. Has some dry cough with no sputum. C/o of some vague and dull abdominal cramping today. She has not been eating or drinking. Vitals stable Gen: Appears dry/ cracked lips, fatigued, not in distress HEENT: pallor+, no thrush, mm dry, hearing intact, neck supple RS decreased BS b/l bases;poor respiratory effort CVS: S1 S2 wnl P/a: Distended, soft, BS +, not tender Neuro: AAOX3, verbal and moving all extremities Ext: no pedal edema Labs: reviewed 1.8 >9.1<46 ANC 1.1 Segmented neutrophils + toxic granulations+ K 2.9 C- diff negative CT abdomen: reviewed PROBLEMS: 1. Squamous cell cancer of the anus 2. Febrile neutropenia, anemia, thrombicytopenia 3. Diarrhea 4. Abd pain/ cramping 5. Dehydration 6. Hypokalemia 7. Poor oral intake 8. Pneumonia vs atelectasis Recommendations: 1. Blood counts at [place] at this time due to myelosuppression from chemo RT and is expected to recuperate soon. ANC already showing an upward trend. Will decide on further doses of granix based on cbc at 6 pm today. Continue to monitor cbc for now. Neutropenia precautions. C/w antibiotics IV. Follow up blood c/s. Transfuse prbc if Hb less than 7gm. She has received 2 doses of IV iron ( injectafer) as outpatient. Plt counts have also improved from 12/10/17. Again likely due to underlying chemotherapy and now with antibiotics might affect platelet count. Monitor for bleeding. Transfuse single donor plts only if bleeding or if counts less than [id number]. Hold anticoagulation until plt counts >50,000. SCD for DVT PPx. Encouraged to keep moving legs and also ambulate as toelrated. Closely monitor vitals and patient's condition/ symptoms. 2. Abd pain/ cramping/ persistent diarrhea: Might be due to recent chemotherapy / laxative use etc. C- diff negative. On Lomotil at the moment. Check for stool c/s. Serial abdominal exams. Likely might have some ileus. Recommend clear liquids for now. Consider surgery/ GI eval prn. Hypokalemia improved with replacement. CT abdomen showed no s/s of bowel obstruction or any emergent finding. Monitor BMP, Mag. 3. Possibility of pneumonia/ atelectasis on CT: PNA addressed by IV antibiotics. She is not in any resp distress. Recommend out of bed to chair. 4. Dehydration due to poor oral intake at home: Feels better with IV hydration. BP improved. C/w IVfluids. She is undergoing chemo RT for the SCC of the anus with an intention to cure. Please call if any questions or concerns.
[2017-12-11] MEDS: CEFEPIME/SWI 2gm 2 GM/20 ML SYR IV SCH (17:36)
[2017-12-11] MEDS: MORPHINE 4 MG/ML SYR IV PRN ×2 (17:51→22:11)
[2017-12-11 18:19] LABS: Absolute Lymphocytes (CBC) 0.4 K/uL (0.7-4.9); Absolute Monocytes 0.5 K/uL (0.1-1.3); Basophils % 0.2 % (0-1.3); Eosinophils % 3.3 % (0-4.4); Hematocrit 27.7 % (36.0-45.0); Lymphocytes % 14.9 % (15.3-44.8); MCH 30.4 pg (27.0-35.0); MCV 89.8 fL (80-100); MPV 8.5 fL (7.6-11.3); Monocytes % 15.7 % (3.3-12.3); RBC Red Blood Cell Count 3.08 M/uL (3.86-4.86)
[2017-12-11] MEDS ORDERED: KCL 20 MEQ/100 mL IVPB 20 MEQ/100 ML BAG IV SCH (20:00)
[2017-12-11] MEDS ORDERED: VANCOMYCIN 1.25 GM in NA CHLORIDE 0.9% 250 ML IVPB SCH (22:00)
[2017-12-11] MEDS: ONDANSETRON 4 MG/2 ML VIAL IV PRN (22:07)
[2017-12-12] MEDS: CEFEPIME/SWI 2gm 2 GM/20 ML SYR IV SCH ×3 (00:22→16:17)
[2017-12-12] MEDS: LEVALBUTEROL 1.25 MG/3 ML NEB NEB SCH ×4 (01:38→20:14)
[2017-12-12] MEDS: IPRATROPIUM BROM 0.5MG/2.5ML NEB SCH ×4 (01:38→20:00)
--- NOTE | 2017-12-12 03:42 | HP ---
Date of Admission: 12/10/2017 Chief Complaint: Weakness, diarrhea. History Of Present Illness: A 67-year-old female who is known to have anorectal cancer for which she is going through radiation and chemo, who was brought to the emergency room because of dizziness, we akness, and diarrhea. The patient was found to have evidence of dehydration, hyponatremia and hypoka lemia. The patient is admitted. There is no history of fever, chills, or rigors. Past Medical History: The patient is known to have hyperlipidemia, depression, COPD. Past Surgical History: Positive for hysterectomy and back surgery. Family History: Noncontributory. Personal History: Currently nonsmoker. Review of Systems: No history of chest pain or shortness of breath. Physical Examination: General: Revealed a 67-year-old female, alert and oriented. HEENT: Negative. Neck: Supple. JVD negative. Chest: Clear. Heart: Regular. Abdomen: Mild diffuse tenderness. Bowel sounds present. Extremities: No edema. Neurological: Negative. Laboratory Data: White count 1.7, hemoglobin 9.7, platelet count 39,000, bands 30. Chem profile; so dium 127, potassium 3.2, calcium 7.1. Procalcitonin 0.49. Diagnostic Data: CAT scan of the abdomen, questionable atelectasis versus infiltrate, base. Chest x -ray, no pneumonia. Assessment: 1.Dehydration. 2.Hyponatremia. 3.Hypokalemia. 4.Diarrhea, probably related to chemo and radiation. 5.Hyperlipidemia. 6.Chronic obstructive pulmonary disease. 7.Depression. Plan: IV fluids, potassium replacement protocol. The patient has been started on IV antibiotic. I will discuss with the Oncology team to see whether she would need coverage with 2 IV antibiotics. FARIDA/TESSIE Voice ID: [id number]
[2017-12-12 05:06] LABS: BUN Blood Urea Nitrogen 9 mg/dL (6-20); Bicarbonate 22 mEq/L (21-31); Glucose Level 95 mg/dL (65-120); Magnesium 1.7 mg/dL (1.8-2.5); Potassium 3.7 mEq/L (3.6-5.0); Sodium Level 135 mEq/L (135-145)
[2017-12-12 05:09] LABS: Absolute Lymphocytes (CBC) 0.5 K/uL (0.7-4.9); Absolute Monocytes 0.4 K/uL (0.1-1.3); Absolute Neutrophil 2.1 K/uL (1.8-8.0); Basophils % 0.2 % (0-1.3); Eosinophils % 3.5 % (0-4.4); Hematocrit 25.9 % (36.0-45.0); Lymphocytes % 14.6 % (15.3-44.8); MCH 30.9 pg (27.0-35.0); MCV 89.7 fL (80-100); MPV 8.3 fL (7.6-11.3); Monocytes % 12.7 % (3.3-12.3); RBC Red Blood Cell Count 2.89 M/uL (3.86-4.86)
[2017-12-12] MEDS ORDERED: KCL 20 MEQ/100 mL IVPB 20 MEQ/100 ML BAG IV SCH (06:00)
[2017-12-12] MEDS: VANCOMYCIN 1.25 GM in NA CHLORIDE 0.9% 250 ML IVPB SCH (06:35)
[2017-12-12] MEDS: DIPHENOX/ATROP SULF 1 TAB PO PRN (06:35)
[2017-12-12] MEDS ORDERED: MAGNESIUM SULFATE 1 gm IVPB 1 GM/100 ML BAG IV ONE ×2 (06:40→21:29)
[2017-12-12] MEDS: INSULIN -REGULAR HUMAN 50 UNIT/0.5 ML ML SQ SCH ×4 (07:30→20:48)
[2017-12-12] MEDS ORDERED: Magnesium Sulfate 2gm IVPB 2 G/50 ML BAG IV ONE (10:00)
[2017-12-12] MEDS: MORPHINE 4 MG/ML SYR IV PRN (10:15)
[2017-12-12] MEDS: ONDANSETRON 4 MG/2 ML VIAL IV PRN (10:24)
[2017-12-12] MEDS: PANTOPRAZOLE 40 MG INJ IVP SCH (10:47)
--- NOTE | 2017-12-12 11:44 | RAD REPORT ---
EXAM DESCRIPTION: RAD - Abdomen Single View - 12/12/2017 10:56 am CLINICAL HISTORY: Abdominal distention COMPARISON: 12/10/2014 CT study FINDINGS: Dilatation of small bowel loops as well as the colon with air is noted. This favors adynam ic ileus. Cholecystectomy clips are present. Lower lumbar spine hardware is noted. IMPRESSION: The findings favor a moderate diffuse adynamic ileus. Consider a followup radiograph in 24-48 hours for continued monitoring.
[2017-12-12] MEDS: NS KCL 20MEQ 20 MEQ/1,000 ML BAG IV SCH ×2 (13:00→20:47)
--- NOTE | 2017-12-12 15:29 | P.PN ---
Date of Service: 12/12/17 (Oncology) Pt seen and examined today at around 12.30pm. Daughters at bedside. She continues to have diarrhea (watery) with vague abdominal cramps and distention. She is on clear liquid diet. WBC has improved. Plt continue to be at [place]. As per nursing staff, she did not have any diarrheal episodes today. per daughters, diarrhea is watery with no stools. No bleeding per rectum. No fevers. Daughters and patient concerned about the ongoing diarrheal issues and enquire about possible transfer to [facility]. Vitals trend reviewed. On 3 L NC Does not appear to be in distress. Gen: Lying on bed, appears tired, ambulatory, gets up from bed and walked to commode, not in distress HEENT: pallor+, no thrush, cracked lips, MMM, hearing intact, neck supple RS decreased BS b/l bases;poor respiratory effort CVS: S1 S2 wnl P/a: Distended, soft, BS +, mildly tender diffusely Neuro: AAOX3, verbal, communicates well and moving all extremities Ext: no pedal edema Labs: reviewed WBC 3/ Hb 8.6/ plt 36 K 3.7; Mag 1.7 C- diff negative UA- + E. coli/ Kleb CT abdomen showed no s/s of bowel obstruction or any emergent finding. AXR- ileus Patient with SCC anus on concurrent chemo RT (1st course of chemo with 5FU/ mitomycin (from 11/26-11/29) and daily RT. Patient admitted due to hypotension, poor oral intake and neutropenia. Has remained afebrile. 1. Pancytopenia: Counts at [place] post chemotherapy and expected to recuperate soon. She received one dose of neupogen on 12/10/17. WBC 3.1 today with ANC > 1500. Anemia and thrombocytopenia also due to myelosuppression as well. She had some iron deficiency anemia pre chemo for which injectafer x 2 doses was given. She is also on multiple antibiotics and ? UTI (c/s + E.coli/ Kleb) at this time which could attribute to some degree of thrombocytopenia. -Monitor cbc daily. -Transfuse prbc if Hb less than 7gm. -Monitor for bleeding. Transfuse single donor plts only if bleeding or if counts less than 42729. -Hold anticoagulation until plt counts >50,000. -SCD for DVT PPx. Encouraged to keep moving legs and also ambulate as tolerated. 2. Abd pain/ cramping/ persistent diarrhea: Grade 3-4 Diarrhea. Likely due to recent chemotherapy. AXR shows ileus. She is on lomotil, morphine as well which could attribute to some ileus. Get Surgery/ GI evaluation. Initial C- diff negative. Check for stool c/s. Repeat C- diff studies. Monitor I/O. Serial abdominal exams. 3. Possibility of pneumonia/ atelectasis on CT: PNA addressed by IV antibiotics. She is not in any resp distress. Recommend out of bed to chair. DC Vancomycin. 4. Dehydration due to diarrhea and poor oral intake: Feels better with IV hydration. BP improved. C/w IV fluids. Monitor respiratory status. Recommend get a CXR. 5. U c/s positive for E.coli/ Kleb: sensitive to cefepime. 6. Electrolyte abnormalities: hypokalemia improved to 3.7. Mag 1.7. Replace with 2 gm IV mag. Stop PO mag as can worsen diarrhea. Monitor daily BMP, Mag. Discussed with house staff and Dr Natarajan. Also discussions about possible transfer to a tertiary center seem to be in progress. Will continue to follow.
[2017-12-13] MEDS: CEFEPIME/SWI 2gm 2 GM/20 ML SYR IV SCH ×3 (00:22→17:32)
[2017-12-13] MEDS: LEVALBUTEROL 1.25 MG/3 ML NEB NEB SCH ×4 (02:00→19:36)
[2017-12-13] MEDS: IPRATROPIUM BROM 0.5MG/2.5ML NEB SCH ×4 (02:00→19:36)
--- NOTE | 2017-12-13 02:10 | PN ---
The patient's diarrhea is better. She still has abdominal bloating. The patient is being seen by On cology, General Surgery, and GI services. The patient generally looks better; however, she wanted to see whether she could be transferred to [facility], I put a request, and I spoke to the physician o n-call. I was told that the patient get a second opinion after she is discharged as she looks stable and does not require any immediate tertiary care. This was explained to the family. Initially, the y asked for transfer to [facility]; however, they told the nurse not to pursue any more transfer. The patient will be treated here. The patient generally looks better. Her chest is clear, heart reg ular. RENK/MARIANAL Voice ID: [id number] Report ID: [id number]
[2017-12-13] MEDS: MORPHINE 4 MG/ML SYR IV PRN ×5 (03:49→23:03)
[2017-12-13] MEDS ORDERED: MORPHINE 4 MG/ML SYR IV ONE (04:43)
[2017-12-13] MEDS ORDERED: DIPHENHYDRAMINE 25 MG TAB/CAP PO ONE (04:44)
[2017-12-13 05:42] LABS: Absolute Lymphocytes (CBC) 0.5 K/uL (0.7-4.9); Absolute Monocytes 0.5 K/uL (0.1-1.3); Absolute Neutrophil 3.6 K/uL (1.8-8.0); Basophils % 0.2 % (0-1.3); Eosinophils % 0.9 % (0-4.4); Hematocrit 29.1 % (36.0-45.0); Lymphocytes % 10.5 % (15.3-44.8); MCH 30.4 pg (27.0-35.0); MCV 89.2 fL (80-100); MPV 9.1 fL (7.6-11.3); RBC Red Blood Cell Count 3.26 M/uL (3.86-4.86)
[2017-12-13 05:50] LABS: Glucose Level 108 mg/dL (65-120); Magnesium 1.7 mg/dL (1.8-2.5)
[2017-12-13 05:53] LABS: Bicarbonate 24 mEq/L (21-31); Sodium Level 133 mEq/L (135-145)
[2017-12-13 05:55] LABS: BUN Blood Urea Nitrogen < 5 mg/dL (6-20)
[2017-12-13 05:56] LABS: Potassium 2.8 mEq/L (3.6-5.0)
[2017-12-13] MEDS: NS KCL 20MEQ 20 MEQ/1,000 ML BAG IV SCH ×3 (06:12→23:03)
[2017-12-13] MEDS: KCL 20 MEQ/100 mL IVPB 20 MEQ/100 ML BAG IV SCH ×3 (06:12→11:10)
[2017-12-13] MEDS: INSULIN -REGULAR HUMAN 50 UNIT/0.5 ML ML SQ SCH ×4 (07:30→20:51)
[2017-12-13] MEDS: PANTOPRAZOLE 40 MG INJ IVP SCH (09:36)
--- NOTE | 2017-12-13 09:55 | RAD REPORT ---
EXAM DESCRIPTION: RAD - Abdomen Single View - 12/13/2017 9:16 am CLINICAL HISTORY: Abdomen pain. FINDINGS: The amount of air within small bowel has diminished. Small bowel caliber is normal. Air is present within the colon. No signal abnormal calcification is displayed.
[2017-12-13] MEDS: GABAPENTIN 100 MG CAP PO SCH ×2 (11:09→20:02)
--- NOTE | 2017-12-13 12:52 | CON ---
Date of Consultation: 12/12/2017 Brief Hpi: The patient is a 67-year-old female, who presents to the hospital with abdomina l pain and dehydration. She has a history significant for anorectal cancer which sounds suspicious f or anal cancer, I believe it to be squamous subtype for which she is receiving chemo and radiation. Her last treatment was last week. She has abdominal pain, distention, some nausea and vomiting, gene ral bloating with meals and some decrease in her bowel function prior to her admission to the [facility]. Since being admitted on the , she has worsening symptoms up to the ; however, the evening of the and the , she had some improvement in her symptoms having some gas and bowel movement s and some lessening of her abdominal distention and improvement of her nausea and decreased amount o f emesis, however, she continues to have emesis. She denies fever or chills. Past Medical History: Significant for hyperlipidemia, depression, COPD, and anorectal cancer. Past Surgical History: She has had a hysterectomy and back surgery. Family History: Noncontributory. Social History: She denies smoking, alcohol, recreational drug use. Allergies: TO NO KNOWN DRUG ALLERGIES. Current Medications: At home she does not recall her chemotherapy regimen. She takes Tylenol, atorv astatin, Symbicort, duloxetine, gabapentin, glimepiride, [place], meloxicam, omeprazole, tizanidine, tr azodone, and valsartan. Review of Systems: Her 10-point review of systems other than HPI, denies. Physical Examination: Vital Signs: At the time of examination, her BMI is 24 approximately. Her blood pressure is 123/56, pulse was 86, respiratory rate 18, and temperature 97.0. General: She is awake, alert, and oriented. Psychiatric: She is appropriate, conversive. HEENT: She is normocephalic. Her sclerae are anicteric. Her mucous membranes are moist. Oropharynx clear. Neck: Supple with no JVD. Chest: Normal expansion and excursion. Cardiovascular: Regular rate and rhythm. Pulmonary: Clear to auscultation bilaterally. Abdomen: Soft with mild global tenderness to palpation. No focal peritonitis. No rebound. No guar ding. She is mildly distended. She has bowel sounds evident. She has no hernias appreciated. Extremities: No clubbing, cyanosis, or edema. Neurologic: no focality noted. Skin: Warm and dry. Laboratory Data: Revealed a white blood cell count of 3.1. Her hemoglobin is 8.9 over hematocrit of 25.9. Her platelet count is 39. Her neutrophils were normal at 69, lymphocytes are 14. Her sodium is 135, potassium 3.7, chloride 109, carbon dioxide 22, BUN 9, creatinine 0.4, glucose is 95, calciu m is 7.7, and magnesium 1.7. She had imaging performed which included an abdominal x-ray and abdomin al CT. On 12/10, she had an abdominal CT which was officially read as no bowel obstruction, free air or, surgically emergent findings. There was anal wall thickening matching malignancy history. This is improved from prior imaging. No acute or GI process identified. Patchy pneumonia changes in the posterior lingula of the left base. Then, she had a followup abdominal x-ray on 12/12, which off icially read as the findings favor moderate diffuse adynamic ileus. Assessment And Plan: This is a 67-year-old female with a history of anorectal cancer, who recently r eceived treatment and currently has symptoms of an of an ileus, possibly related to the radiation ent eritis. 1.IV fluid hydration. 2.Antibiotic coverage. 3.Serial exams. 4.Medical management for electrolyte management as well as thrombocytopenia. 5.Serial exams of the abdomen. 6.The patient is having return of bowel function and improvement of her symptoms; therefore, making the need for surgery less likely. However, I will follow along and perform serial exams should her e xam worsen and she needs surgical intervention. I have explained the risks, benefits, alternatives t o the above stated plan. The patient agrees to proceed as indicated. Thank you for this interesting consult. HUGH/TESSIE Voice ID: [id number] Report ID: [id number]
[2017-12-13] MEDS ORDERED: POTASSIUM 25 MEQ EFFERV TAB PO ONE (19:05)
[2017-12-13] MEDS: ONDANSETRON 4 MG/2 ML VIAL IV PRN (19:57)
--- NOTE | 2017-12-13 21:27 | P.PN ---
Patient seen and examined this am. Family were at bedside. She feels some improvement in her abdominal symptoms. She is passing gas and feels that the frequency of her diarrheal episodes have decreased and so did her abdominal distention. She is tolerating Full liquids at this time.Last night she had a panic attack with symptoms of generalized pains which she claims are due to fibromyalgia. She received morphine and was started back on gabapentin. She is being followed by Dr Colunga for the ileus. Abd XR today shows signs of improvement as well. Clinically she appears much better, though still has diffuse abdominal pain intermittently . EXAM Gen: Lying on bed, and talking to family, not in distress, comfortable on room air HEENT: pallor+, no thrush, cracked lips, MMM, hearing intact, neck supple RS: good air entry, CTA CVS: S1 S2 wnl P/a: Distended, soft, BS +, mildly tender diffusely on palpation Neuro: AAOX3, verbal, communicates well and moving all extremities Ext: no pedal edema Labs and imaging reviewed Problems/ recommendations: 1. Ileus/ Chemotherapy related diarrhea: s/s improving. Continue with serial abdominal exams and xrays to monitor progress. Lomotil on hold due to ileus. Follow up Surgery recommendations for symptom management and also for diet advancement. 2. Electrolyte abnormalities: Due to diarrheal losses. Hypokalemia is being corrected. Monitor BMP, Mg and replace accordingly. Diarrheal s/s are expected to improve as well. c/w IVF with K replacement. 3. Pancytopenia: Counts have shown signs of improvement. Will continue to monitor. ANC has normalized. Likely switch to PO antibiotics based on c/s sensitivity to complete course if abdominal and diarrheal s/s show further s/s of improvement. 4. 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 Radiation is on hold at the moment. She does have her next dose of chemo from Dec 27-. But will readdress her tolerance and further options (either dose reductions or holding chemo) once she recuperates. Continue care as per primary medical team. Dr Hubbard will be director of donor relations from this afternoon. Please call us if any questions or concerns.
[2017-12-14] MEDS: CEFEPIME/SWI 2gm 2 GM/20 ML SYR IV SCH (00:20)
[2017-12-14] MEDS: IPRATROPIUM BROM 0.5MG/2.5ML NEB SCH ×3 (01:15→13:31)
[2017-12-14] MEDS: LEVALBUTEROL 1.25 MG/3 ML NEB NEB SCH ×3 (01:15→13:31)
[2017-12-14] MEDS: MORPHINE 4 MG/ML SYR IV PRN ×3 (02:52→11:03)
[2017-12-14] MEDS ORDERED: KCL 20 MEQ/100 mL IVPB 20 MEQ/100 ML BAG IV SCH (03:00)
[2017-12-14] MEDS: NS KCL 20MEQ 20 MEQ/1,000 ML BAG IV SCH (04:58)
[2017-12-14] MEDS: INSULIN -REGULAR HUMAN 50 UNIT/0.5 ML ML SQ SCH ×2 (07:30→11:30)
[2017-12-14] MEDS ORDERED: NS KCL 20MEQ 20 MEQ/1,000 ML BAG IV SCH (08:56)
[2017-12-14] MEDS ORDERED: CEFEPIME/SWI 2gm 2 GM/20 ML SYR IV SCH (09:00)
[2017-12-14] MEDS ORDERED: CEFEPIME 2 GM VIAL IV SCH (09:00)
[2017-12-14] MEDS: PANTOPRAZOLE 40 MG INJ IVP SCH (09:53)
[2017-12-14] MEDS: GABAPENTIN 100 MG CAP PO SCH (09:53)
--- NOTE | 2017-12-14 09:59 | RAD REPORT ---
EXAM DESCRIPTION: RAD - Chest Pa And Lat (2 Views) - 12/14/2017 9:40 am CLINICAL HISTORY: Pneumonia COMPARISON: December 10 TECHNIQUE: PA and lateral views of the chest were obtained. FINDINGS: The lungs are clear of a peripheral consolidation, mass or significant failure finding. In terstitial markings are mildly prominent but not substantially different when adjusting for technique . Heart size is normal range. No vascular engorgement. Right jugular central line remains in place. No pleural effusion or pneumothorax seen. No acute bony finding noted. No aortic abnormality. IMPRESSION: No acute cardiopulmonary finding seen. Patient has chronic interstitial lung disease wh ich could mask earliest stages of an interstitial edema or infiltrate.
--- NOTE | 2017-12-14 10:00 | RAD REPORT ---
EXAM DESCRIPTION: RAD - Abdomen Single View - 12/14/2017 9:40 am CLINICAL HISTORY: Abdominal pain, ileus COMPARISON: April 14 FINDINGS: Air is scattered throughout nondilated large and small bowel. No free air or pneumatosis h ave developed. Bowel pattern is not substantially different from the prior day study. No suspicious c alcifications. IMPRESSION: Prominent air-filled nondilated small bowel loops. Pattern is similar to comparison. No free air, pneumatosis or progressive process.
[2017-12-14] MEDS ORDERED: HEPARIN SOD 100 UNIT/ML FLUSH IV PRN (14:12)
[2017-12-14] MEDS ORDERED: HEPARIN 500 UNIT/5 ML SYR IV PRN (14:15)
--- NOTE | 2017-12-24 01:05 | DS ---
Date of Discharge: 12/14/2017 Final Diagnoses: 1.Dehydration. 2.Hyponatremia. 3.Possible infiltrate on the x-ray. 4.Hypokalemia. 5.Diarrhea related to radiation and chemotherapy. 6.Hyperlipidemia. 7.Chronic obstructive pulmonary disease. 8.Depression. Hospital Course: This patient was admitted because of continuous diarrhea, dizziness. The patient w as found to have evidence of dehydration with the sodium of 127, potassium 3.2. The patient also had low platelet count and low white count related to her chemotherapy. The patient had anorectal cance r for which she also was having radiation. The patient received potassium replacement, IV fluids as well as IV antibiotic, pending the culture reports. The patient continued to have severe diarrhea as well as dehydration. The patient was covered with antibiotics for her possible pneumonia. The clarita ent however showed improvement over the next 3 days with gradual improvement of her diarrhea as well as improved general well being and abdominal pain. The patient also was seen by Oncology as well as Surgical Services. The patient was discharged home on 12/14/2017 to have follow up in the office. T he patient wanted to go home and think about her further chemo and radiation management as well as lo ng-term surgery for her anorectal cancer. Laboratory Data: Please refer to the chart. FARIDA/TESSIE Voice ID: [id number] Report ID: [id number]
== END 2017-12-14 14:57 | disposition home or self-care (01) | DRG 394 ==
LOC: ER 16:56 → ERHOLD 20:59 → 4TH 21:31
PROVIDERS: ADMIT Internal Medicine; ATTEND Internal Medicine
DX: K52.1 Toxic gastroenteritis and colitis (principal); C21.0 Malignant neoplasm of anus, unspecified; D61.818 Other pancytopenia; N39.0 Urinary tract infection, site not specified; K56.7 Ileus, unspecified; E87.1 Hypo-osmolality and hyponatremia; E86.0 Dehydration; E87.6 Hypokalemia; E78.5 Hyperlipidemia, unspecified; J44.9 Chronic obstructive pulmonary disease, unspecified; F32.9 Major depressive disorder, single episode, unspecified; D69.6 Thrombocytopenia, unspecified; T45.1X5A Adverse effect of antineoplastic and immunosuppressive drugs, initial encounter
CPT/HCPCS: 36415; 71045; 71046; 74018; 74176; 76377; 77386; 80048; 80053; 80076; 81003; 82550; 82553; 82962; 83605; 83690; 83735; 83880; 83930; 83935; 84100; 84132; 84145; 84300; 84484; 85025; 85610; 85730; 86850; 86900; 86901; 87040; 87045; 87046; 87070; 87077; 87086; 87088; 87177; 87186; 87205; 87209; 87493; 87804; 93005; 94640; 96361; 96365; 96367; 96368; 96375; 99285; C9113; J0692; J1642; J2270; J2405; J3370; J3475; J7030

== ENCOUNTER 2017-12-28 10:30 | Observation (INO) | payer OTHER ==
--- OUTSIDE RECORDS SUMMARY | 2017-12-28 10:32 | XMS REPORT | Clinical Summary ---
:1950 Author Organization [facility] Address [address] [place] [id number] Care Team Providers Name Role Phone Dean Ga MD Primary Care Provider Allergies No Known Allergies Current Medications No known medications Active Problems No known active problems Encounters Date Type Specialty Care Team Description 12/25/2017 Orders Only General Surgery Robbin Moon Anal cancer ( Primary Dx) 12/18/2017 Office Visit General Surgery Robbin Moon Anal cancer ( Primary Dx) after 12/27/2016 Family History Medical History Relation Name Comments Arthritis Mother Asthma Mother Diabetes Sister Relation Name Status Comments Mother Sister Social History Tobacco Use Types Packs/Day Years Used Date Current Every Day Smoker 1 Smokeless Tobacco: Never Used Alcohol Use Drinks/Week oz/Week Comments No Sex Assigned at Date Recorded Not on file Last Filed Vital Signs Vital Sign Reading Time Taken Blood Pressure 151/67 12/18/2017 12:57 PM CDT Pulse 100 12/18/2017 12:57 PM CDT Temperature - - Respiratory Rate - - Oxygen Saturation - - Inhaled Oxygen Concentration - - Weight 68 kg (150 lb) 12/18/2017 12:57 PM CDT Height 160 cm (5' 3") 12/18/2017 12:57 PM CDT Body Mass Index 26.57 12/18/2017 12:57 PM CDT Plan of Treatment Date Type Specialty Care Team Description 12/25/2017 Procedure Pass General Surgery 01/30/2018 Appointment Radiology Robbin Moon MD [address] [facility] [address] [place] [address] 01/30/2018 Office Visit General Surgery Robbin Moon MD [address] [facility] [address] [place] [address] [phone] 02/13/2018 Surgery General Surgery Robbin Moon ROBOTIC ASSISTED MD Pravin LAPAROSCOPIC ABDOMINAL [address] [place] [address] [place] [address] [id number] 02/13/2018 Procedure Pass General Surgery 02/13/2018 Hospital Encounter General Surgery Robbin Moon MD [address] [facility] [address] [facility] [place], [place] [id number] Health Maintenance Due Date Last Done Comments COLONOSCOPY 01/26/2000 MAMMOGRAM 01/26/2000 SHINGRIX VACCINE (#1) 01/26/2000 ZOSTER VACCINE 2010 PNEUMOCOCCAL POLYSACCHARIDE VACCINE AGE 65 AND OVER 2015 PNEUMOCOCCAL-13 2015 INFLUENZA VACCINE 04/03/2018 Results Not on fileafter 12/27/2016 Insurance Payer Benefit Plan / Group Subscriber ID Type Phone Address MEDICARE MEDICARE PART A AND B xxxxxxxxxx Medicare [place], [place] [employer] [employer] xxxxxxxxxx [employer]
[2017-12-28] MEDS ORDERED: ONDANSETRON 4 MG/2 ML VIAL ONE ×2 (11:53→19:12)
[2017-12-28] MEDS ORDERED: MORPHINE 4 MG/ML SYR ONE ×2 (11:53→18:00)
[2017-12-28] MEDS ORDERED: PANTOPRAZOLE 40 MG INJ ONE (11:53)
[2017-12-28 12:04] LABS: Absolute Lymphocytes (CBC) 0.7 K/uL (0.7-4.9); Absolute Monocytes 0.6 K/uL (0.1-1.3); Absolute Neutrophil 3.1 K/uL (1.8-8.0); Basophils % 0.6 % (0-1.3); Eosinophils % 2.7 % (0-4.4); Hematocrit 36.3 % (36.0-45.0); Lymphocytes % 14.5 % (15.3-44.8); MCH 32.5 pg (27.0-35.0); MPV 7.1 fL (7.6-11.3); Monocytes % 14.1 % (3.3-12.3); RBC Red Blood Cell Count 3.82 M/uL (3.86-4.86)
[2017-12-28 12:09] LABS: Bicarbonate 23 mEq/L (21-31); Glucose Level 93 mg/dL (65-120); Lipase 19 U/L (22-51); Potassium 3.3 mEq/L (3.6-5.0); Sodium Level 130 mEq/L (135-145)
[2017-12-28 12:15] LABS: ALT/SGPT 21 IU/L (10-60); AST/SGOT 27 IU/L (10-42); Alkaline Phosphatase 90 IU/L (42-121); BUN Blood Urea Nitrogen 11 mg/dL (6-20)
[2017-12-28 12:16] LABS: Albumin 4.1 g/dL (3.2-5.5); Amylase Level 41 U/L (28-100); Bilirubin Direct 0.1 mg/dL (0-0.2); Bilirubin Total 0.7 mg/dL (0.3-1.2); Protein, Total 7.7 g/dL (6.0-8.3)
[2017-12-28 13:11] LABS: Urine Blood TRACE (NEG); Urine Glucose NEGATIVE (NEG); Urine Protein NEGATIVE (NEG); Urine Specific Gravity 1.005 (1.005-1.030); Urine pH 6.5 (5.0-7.0)
[2017-12-28 13:11] LABS: Protime INR 0.97
[2017-12-28 13:11] LABS: Urine Bacteria <20 /HPF (<20); Urine Culture Reflex Order REFLEXED
--- NOTE | 2017-12-28 13:55 | RAD REPORT ---
EXAM DESCRIPTION: CT - Abdomen Pelvis W Contrast - 12/28/2017 1:44 pm CLINICAL HISTORY: Abdominal pain, diarrhea, black stool, history of recent rectal carcinoma diagnosi s COMPARISON: CT study December 10, 2017 and November 02, 2017 TECHNIQUE: Biphasic, helical CT imaging of the abdomen and pelvis was performed following 100 ml non -ionic IV contrast. Oral contrast was given. All CT scans are performed using dose optimization technique as appropriate and may include automated exposure control or mA/KV adjustment according to patient size. FINDINGS: No suspicious findings in the lung bases. The liver, spleen, and pancreas show no suspicious findings. Cholecystectomy clips are present. No bi liary tree dilatation. Renal function is symmetric and does not appear to be delayed. There are no pyelonephritis findings. There is bilateral mild dilatation of the pelvis and calices. No obstructing ureteral calculi and the re is no etiology for this increase in collecting system dilatation compared to prior studies. Urinar y bladder is well filled but not dilated. No wall thickening or mass. No gastric dilatation or gastric wall thickening. No acute small bowel finding. From cecum through de scending colon no acute colon process identifiable. Patient has a minimal diverticulosis within the s igmoid colon. Edema and wall thickening of the rectum noted matching prior imaging. This matches the malignant history. No perforation of the rectum. No new or enlarging mass or lymphadenopathy. No absc ess. No free air, pneumatosis or free fluid. No hernia, mass or bulky lymphadenopathy. No adrenal abnor mality. No suspicious bony findings. IMPRESSION: Perianal rectal wall thickening is present with some mild congestion or edema in the per ianal fatty tissues. This matches prior imaging and matches the malignant history. No perforation, abscess, lymphadenopathy or other complicating factor. No surgically emergent finding . Patient shows mild hydronephrosis of the pelvis and calices proximally. No obstructing calculus seen. Etiology is not certain and renal function does not appear to be delayed.
[2017-12-28] MEDS ORDERED: CEFTRIAXONE/SWI 1gm 1 GM/10 ML SYR ONE (14:12)
[2017-12-28] MEDS ORDERED: NA CHLORIDE 0.9% 1,000 ML ONE (14:22)
[2017-12-28 15:33] LABS: Hematocrit 32.4 % (36.0-45.0)
--- NOTE | 2017-12-28 16:04 | EDPHYS ---
Physician Documentation [facility] Name: Jess Terry Age: 67 yrs Sex: Female : 1950 Arrival Date: 12/28/2017 Time: 10:32 Bed 5 Private MD: Dean Natarajan R ED Physician Donte English HPI: 12/28 11:17 This 67 yrs old Female presents to ER via Ambulatory with complaints of cp Rectal Bleeding, Nausea, Diarrhea. 11:17 The patient presents to the emergency department with bleeding from the rectum/anus. cp Onset: The symptoms/episode began/occurred this morning. Context: the patient has no known special context relating to the rectal area complaint(s). Associate signs and symptoms: Pertinent positives: abdominal pain in the abdomen diffusely, diarrhea, nausea, Pertinent negatives: constipation, dysuria, fever. The patient has experienced a previous episode. Historical: - Allergies: 10:53 No Known Allergies; hj - Home Meds: 10:53 atorvastatin 40 mg Oral tab 1 tab once daily [Active]; duloxetine 60 mg Oral cpDR 1 cap hj once daily [Active]; gabapentin 600 mg Oral tab 1 tab 3 times per day [Active]; glimepiride 1 mg Oral tab 1 tab once daily [Active]; hydrocodone-acetaminophen 10-325 mg Oral tab 1 tab every 4-6 hours [Active]; meloxicam 7.5 mg Oral tab 1 tab once daily [Active]; omeprazole 20 mg Oral cpDR 1 cap once daily [Active]; Symbicort 80-4.5 mcg/actuation inhalation HFAA 2 puffs 2 times per day [Active]; tizanidine 2 mg Oral cap 2 caps every 6 hours [Active]; trazodone 100 mg Oral tab 1 tab 2 times per day [Active]; Tylenol Extra Strength 500 mg Oral tab 1 tab every 4-6 hours [Active]; valsartan 320 mg Oral tab 1 tab once daily [Active]; - PMHx: 10:53 COPD; Hyperlipidemia; Hypertension; hj - PSHx: 10:53 back; Hysterectomy; hj - Immunization history:: Adult Immunizations up to date. - Social history:: Smoking status: Patient/guardian denies using tobacco. ROS: 11:17 Eyes: Negative for injury, pain, redness, and discharge. cp 11:17 Constitutional: Negative for body aches, chills, fever, poor PO intake. 11:17 ENT: Negative for drainage from ear(s), ear pain, sore throat, difficulty swallowing, difficulty handling secretions. 11:17 Cardiovascular: Negative for chest pain, edema, palpitations. 11:17 Respiratory: Negative for cough, shortness of breath, wheezing. 11:17 Abdomen/GI: Positive for abdominal pain, black/tarry stool, rectal bleeding, Negative for vomiting, constipation, anorexia. 11:17 Back: Positive for pain at rest. 11:17 Skin: Negative for cellulitis, rash. 11:17 Neuro: Negative for altered mental status, headache, syncope, near syncope, weakness. 11:17 All other systems are negative. Exam: 11:19 Head/Face: Normocephalic, atraumatic. cp 11:19 Constitutional: The patient appears in no acute distress, alert, awake, non-toxic, well developed, well nourished, uncomfortable. 11:19 Eyes: Periorbital structures: appear normal, Pupils: equal, round, and reactive to light and accomodation, Extraocular movements: intact throughout, Conjunctiva: normal, no exudate, no injection, Sclera: no appreciated abnormality, Lids and lashes: appear normal, bilaterally. 11:19 ENT: External ear(s): are unremarkable, Nose: is normal, Mouth: Lips: moist, Oral mucosa: moist, Posterior pharynx: is normal, airway is patent, no erythema, no exudate. 11:19 Neck: ROM/movement: is normal, is supple, without pain, no range of motions limitations, no nuchal rigidity. 11:19 Chest/axilla: Inspection: normal, Palpation: is normal, no crepitus, no tenderness. 11:19 Cardiovascular: Rate: normal, Rhythm: regular. 11:19 Respiratory: the patient does not display signs of respiratory distress, Respirations: normal, no use of accessory muscles, no retractions, no splinting, no tachypnea, labored breathing, is not present, Breath sounds: are clear throughout, no decreased breath sounds, no stridor, no wheezing. 11:19 Abdomen/GI: Inspection: abdomen appears normal, Bowel sounds: active, all quadrants, Palpation: soft, in all quadrants, moderate abdominal tenderness, in all quadrants, rebound tenderness, is not appreciated, voluntary guarding, is elicited in all quadrants. 11:19 Skin: cellulitis, is not appreciated, no rash present. 11:20 : Rectal exam: is refused by patient or guardian. Vital Signs: 10:54 BP 135 / 68; Pulse 83; Resp 18; Temp 97.8(O); Pulse Ox 98% on R/A; Weight 64.86 kg; hj Height 5 ft. 4 in. (162.56 cm); Pain 8/10; 12:09 BP 143 / 68; Pulse 83; Resp 18; Pulse Ox 96% on R/A; ae1 13:18 BP 158 / 57; Pulse 80; Resp 16; Pulse Ox 96% on R/A; ae1 16:03 BP 121 / 57; Pulse 78; Resp 17; Pulse Ox 97% on R/A; jb1 17:15 BP 130 / 55; Pulse 71; Resp 16; Pulse Ox 91% on R/A; ae1 18:32 BP 126 / 64; Pulse 76; Resp 17; Pulse Ox 99% on 2 lpm NC; ae1 19:31 BP 111 / 60; Pulse 71; Pulse Ox 99% ; Pain 0/10; ae1 10:54 Body Mass Index 24.54 (64.86 kg, 162.56 cm) hj MDM: 11:01 Patient medically screened. 12:00 Differential diagnosis: hemorrhoids, fissure, abscess, colorectal CA, anemia. 15:45 Data reviewed: vital signs, nurses notes, lab test result(s), radiologic studies, CT cp scan. 15:45 Physician consultation: Dean Natarajan MD was contacted at 15:45, regarding admission, to the telemetry unit. patient's condition. 12/28 11:37 Order name: Amylase, Serum; Complete Time: 12:29 12/28 11:37 Order name: Basic Metabolic Panel; Complete Time: 12:29 12/28 12:29 Interpretation: Normal except: NA 130; K 3.3; CL 97. 12/28 11:37 Order name: CBC with Diff; Complete Time: 12:13 12/28 12:14 Interpretation: Normal except: RBC 3.82; MCV 95.0; RDW 18.7; MPV 7.1; LYM% 14.5; MN% cp 14.1. 12/28 11:37 Order name: Creatinine for Radiology; Complete Time: 12:13 cp 12/28 12:14 Interpretation: Reviewed. 12/28 11:37 Order name: Hepatic Function; Complete Time: 12:29 cp 12/28 13:59 Interpretation: Normal except: GLOB 3.6. cp 12/28 11:37 Order name: Lipase; Complete Time: 12:29 cp 12/28 11:37 Order name: Urine Microscopic Only; Complete Time: 13:45 cp 12/28 13:46 Interpretation: Normal except: UWBC 5-10; URBC 5-10. 12/28 11:37 Order name: PT-INR; Complete Time: 13:45 12/28 11:37 Order name: Ptt, Activated; Complete Time: 13:45 12/28 11:38 Order name: Type And Screen; Complete Time: 13:56 12/28 12:49 Order name: Urine Dipstick--Ancillary (enter results); Complete Time: 13:45 12/28 13:46 Interpretation: Normal except: UBLD TRACE; UESTR TRACE. 12/28 13:11 Order name: Urine Culture EDID 12/28 14:38 Order name: Hemoglobin; Complete Time: 15:39 12/28 14:38 Order name: Hematocrit; Complete Time: 15:39 12/28 11:37 Order name: CT Abd/Pelvis - W/Contrast: give oral contrast; Complete Time: 13:56 12/28 16:35 Order name: Basic Metabolic Panel [facility] 12/28 16:35 Order name: Basic Metabolic Panel [facility] 12/28 16:35 Order name: CBC with Automated Diff EDMS 12/28 16:35 Order name: CBC with Automated Diff EDMS 12/28 16:37 Order name: Hematocrit; Complete Time: 22:06 EDID 12/28 16:37 Order name: Hemoglobin; Complete Time: 22:06 EDID 12/28 11:37 Order name: IV Saline Lock; Complete Time: 12:09 cp 12/28 11:37 Order name: Labs collected and sent; Complete Time: 12:09 12/28 11:37 Order name: Urine Dipstick-Ancillary (obtain specimen); Complete Time: 12:57 12/28 12:04 Order name: Labs - recollect needed; Complete Time: 12:25 eb 12/28 16:06 Order name: Diet Heart Healthy; Complete Time: 16:07 cp Administered Medications: 11:58 Drug: Zofran 4 mg Route: IVP; Site: right forearm; ae1 12:00 Drug: morphine 4 mg Route: IVP; Site: right forearm; ae1 12:03 Drug: ProTONIX 40 mg Route: IVP; Site: right forearm; ae1 13:14 Drug: Zofran 4 mg Route: IVP; Site: right forearm; ae1 19:01 Follow up: Response: Nausea is decreased ae1 14:29 Drug: Rocephin - (cefTRIAXone) 1 grams Route: IVPB; Infused Over: 30 mins; Site: right ae1 forearm; 14:29 Drug: NS 0.9% 1000 ml Route: IV; Rate: 100 ml/hr; Site: right forearm; ae1 20:01 Follow up: IV Status: Infusion continued upon admission aa1 18:03 Drug: morphine 4 mg Route: IVP; Site: right forearm; ae1 19:01 Follow up: Response: Pain is decreased ae1 19:19 Drug: Zofran 4 mg Route: IVP; Site: right antecubital; aa1 19:59 Follow up: Response: Nausea is decreased aa1 19:57 Drug: K-Lyte Effervescent Tablet 50 mEq Route: PO; aa1 19:59 Follow up: Response: Medication administered at discharge. aa1 20:00 Not Given (Duplicate Order): Zofran 4 mg IVP once; over 2 minutes aa1 Disposition: 12/28/17 16:03 Hospitalization ordered by Dean Natarajan for Observation. Preliminary diagnosis is Gastrointestinal hemorrhage, unspecified. - Bed requested for Telemetry/MedSurg (observation). - Status is Observation. aa1 - Condition is Stable. - Problem is new. - Symptoms are unchanged. UTI on Admission? Yes Addendum: 01/05/2018 19:59 Co-signature as Attending Physician, Donte English MD I agree with the assessment and k dr plan of care. Signatures: Dispatcher [employer] EDID Paola Felix RN RN Vane Alvarado RN RN aa1 Donte English MD MD [facility] Beatriz Gill RN RN Tanner Fitch RN RN la1 Chaparro Savage, RN RN hj Gary Hackett PA PA cp Mukesh Zuniga, RN RN ae1 Melisa Quintanilla Corrections: (The following items were deleted from the chart) 12/28 16:17 16:03 Hospitalization Ordered by Dean Natarajan MD for Observation. Preliminary diagnosis eb is Gastrointestinal hemorrhage, unspecified. Bed requested for Telemetry/MedSurg (observation). Status is Observation. Condition is Stable. Problem is new. Symptoms are unchanged. UTI on Admission? Yes. cp 16:53 16:17 12/28/2017 16:03 Hospitalization Ordered by Dean Natarajan MD for Observation. dw Preliminary diagnosis is Gastrointestinal hemorrhage, unspecified. Bed requested for Telemetry/MedSurg (observation). Status is Observation. Condition is Stable. Problem is new. Symptoms are unchanged. UTI on Admission? Yes. eb 20:06 16:53 12/28/2017 16:03 Hospitalization Ordered by Dean Natarajan MD for Observation. aa1 Preliminary diagnosis is Gastrointestinal hemorrhage, unspecified. Bed requested for Telemetry/MedSurg (observation). Status is Observation. Condition is Stable. Problem is new. Symptoms are unchanged. UTI on Admission? Yes. dw
--- NOTE | 2017-12-28 16:04 | ER ---
Nurse's Notes [facility] Name: Jess Terry Age: 67 yrs Sex: Female : 1950 Arrival Date: 12/28/2017 Time: 10:32 Bed 5 Private MD: Dean Natarajan R Diagnosis: Gastrointestinal hemorrhage, unspecified Presentation: 12/28 10:50 Presenting complaint: Patient states: i started having diarrhea , first it was black hj wilbert and it turned into fresh blood, have in my abd and moves to the back; denies fever, reports chills; reports nausea;. Transition of care: patient was not received from another setting of care. Onset of symptoms was December 28, 2017. Initial Sepsis Screen: Does the patient meet any 2 criteria? No. Patient's initial sepsis screen is negative. Does the patient have a suspected source of infection? No. Patient's initial sepsis screen is negative. Care prior to arrival: None. 10:50 Method Of Arrival: Ambulatory 10:50 Acuity: MARE 3 hj Triage Assessment: 10:53 General: Appears in no apparent distress. uncomfortable, Behavior is calm, cooperative, hj appropriate for age. Pain: Complains of pain in abdomen Pain radiates to back Quality of pain is described as. GI: Reports nausea, vomiting. Historical: - Allergies: 10:53 No Known Allergies; hj - Home Meds: 10:53 atorvastatin 40 mg Oral tab 1 tab once daily [Active]; duloxetine 60 mg Oral cpDR 1 cap hj once daily [Active]; gabapentin 600 mg Oral tab 1 tab 3 times per day [Active]; glimepiride 1 mg Oral tab 1 tab once daily [Active]; hydrocodone-acetaminophen 10-325 mg Oral tab 1 tab every 4-6 hours [Active]; meloxicam 7.5 mg Oral tab 1 tab once daily [Active]; omeprazole 20 mg Oral cpDR 1 cap once daily [Active]; Symbicort 80-4.5 mcg/actuation inhalation HFAA 2 puffs 2 times per day [Active]; tizanidine 2 mg Oral cap 2 caps every 6 hours [Active]; trazodone 100 mg Oral tab 1 tab 2 times per day [Active]; Tylenol Extra Strength 500 mg Oral tab 1 tab every 4-6 hours [Active]; valsartan 320 mg Oral tab 1 tab once daily [Active]; - PMHx: 10:53 COPD; Hyperlipidemia; Hypertension; hj - PSHx: 10:53 back; Hysterectomy; hj - Immunization history:: Adult Immunizations up to date. - Social history:: Smoking status: Patient/guardian denies using tobacco. Screenin:17 Abuse screen: Denies threats or abuse. Nutritional screening: No deficits noted. ae1 Tuberculosis screening: No symptoms or risk factors identified. Fall Risk None identified. Assessment: 10:50 General: Appears in no apparent distress. uncomfortable, Behavior is cooperative, ae1 anxious. Pain: Complains of pain in abdomen. Neuro: Level of Consciousness is awake, alert, obeys commands, Oriented to person, place, time, situation. Cardiovascular: Heart tones S1 S2 present Patient's skin is warm and dry. Respiratory: Airway is patent Respiratory effort is even, unlabored, Respiratory pattern is regular, symmetrical, Breath sounds are clear bilaterally. GI: Bowel sounds present X 4 quads. Reports diarrhea, bloody stool, nausea. : No signs and/or symptoms were reported regarding the genitourinary system. EENT: No signs and/or symptoms were reported regarding the EENT system. wears glasses. Derm: Skin is pale. Musculoskeletal: Reports. Musculoskeletal: Reports Generalized weakness. 10:53 GI: Abdomen is non-distended. 13:16 Reassessment: Patient c/o increased nausea, provider notified, new orders received. ae1 19:00 Reassessment: Patient appears in no apparent distress at this time. Patient and/or aa1 family updated on plan of care and expected duration. Pain level reassessed. Patient is alert, oriented x 3, equal unlabored respirations, skin warm/dry/pink. Pt awaiting admission to floor. 20:04 Reassessment: Patient appears in no apparent distress at this time. Patient is alert, aa1 oriented x 3, equal unlabored respirations, skin warm/dry/pink. Pt admitted to 4th floor; report given to Trent. Vital Signs: 10:54 BP 135 / 68; Pulse 83; Resp 18; Temp 97.8(O); Pulse Ox 98% on R/A; Weight 64.86 kg; hj Height 5 ft. 4 in. (162.56 cm); Pain 8/10; 12:09 BP 143 / 68; Pulse 83; Resp 18; Pulse Ox 96% on R/A; ae1 13:18 BP 158 / 57; Pulse 80; Resp 16; Pulse Ox 96% on R/A; ae1 16:03 BP 121 / 57; Pulse 78; Resp 17; Pulse Ox 97% on R/A; jb1 17:15 BP 130 / 55; Pulse 71; Resp 16; Pulse Ox 91% on R/A; ae1 18:32 BP 126 / 64; Pulse 76; Resp 17; Pulse Ox 99% on 2 lpm NC; ae1 19:31 BP 111 / 60; Pulse 71; Pulse Ox 99% ; Pain 0/10; ae1 10:54 Body Mass Index 24.54 (64.86 kg, 162.56 cm) ED Course: 10:32 Patient arrived in ED. rg4 10:32 Dean Natarajan MD is Private Physician. rg4 10:52 Triage completed. hj 10:53 Arm band placed on left wrist. hj 10:58 Gary Hackett PA is PHCP. cp 10:59 Donte English MD is Attending Physician. cp 12:07 Mukesh Zuniga, ISAURO is Primary Nurse. ae1 12:10 Placed in gown. Bed in low position. Call light in reach. Side rails up X2. Adult w/ ae1 patient. phototypesetting equipment monitor on. Pulse ox on. NIBP on. Warm blanket given. 13:[address] via wheelchair. jg1 13:43 CT completed. Patient tolerated procedure well. Patient moved back from CT. vm2 13:45 CT Abd/Pelvis - W/Contrast: give oral contrast In Process Unspecified. EDMS 14:07 initiated transfer to [facility] as per PA orders with Annemarie Us eb check and transfer beader. 14:48 \T\[id number] [facility] called to update on delay, she is waiting for the PA of eb to return call to see where he would like the patient to go. 16:03 Dean Natarajan MD is Hospitalizing Provider. cp 16:13 \T\[id number] Annemarie called back to notify me that has declined the transfer. eb 19:18 Primary Nurse role handed off by Mukesh Zuniga, RN rg2 20:04 No provider procedures requiring assistance completed. Patient admitted, IV remains in aa1 place. Administered Medications: 11:58 Drug: Zofran 4 mg Route: IVP; Site: right forearm; ae1 12:00 Drug: morphine 4 mg Route: IVP; Site: right forearm; ae1 12:03 Drug: ProTONIX 40 mg Route: IVP; Site: right forearm; ae1 13:14 Drug: Zofran 4 mg Route: IVP; Site: right forearm; ae1 19:01 Follow up: Response: Nausea is decreased ae1 14:29 Drug: Rocephin - (cefTRIAXone) 1 grams Route: IVPB; Infused Over: 30 mins; Site: right ae1 forearm; 14:29 Drug: NS 0.9% 1000 ml Route: IV; Rate: 100 ml/hr; Site: right forearm; ae1 20:01 Follow up: IV Status: Infusion continued upon admission aa1 18:03 Drug: morphine 4 mg Route: IVP; Site: right forearm; ae1 19:01 Follow up: Response: Pain is decreased ae1 19:19 Drug: Zofran 4 mg Route: IVP; Site: right antecubital; aa1 19:59 Follow up: Response: Nausea is decreased aa1 19:57 Drug: K-Lyte Effervescent Tablet 50 mEq Route: PO; aa1 19:59 Follow up: Response: Medication administered at discharge. aa1 20:00 Not Given (Duplicate Order): Zofran 4 mg IVP once; over 2 minutes aa1 Outcome: 16:03 Decision to Hospitalize by Provider. cp 20:04 Admitted to Tele accompanied by tech, family with patient, via wheelchair, room 423, aa1 with oxygen, with chart, Report called to Trent 20:04 Condition: stable 20:04 Instructed on the need for admit, Demonstrated understanding of instructions. 20:06 Patient left the ED. aa1 Signatures: Dispatcher [employer] EDMS Naveen Boudreaux1 Adam Womack2 Vane Alvarado RN RN aa1 Stephanie Kelly Henry, RN RN hj Page, Corey, PA PA cp Mukesh Zuniga RN RN ae1 Meryl Kelly rg4 Jacqueline Allen [facility] Melisa Quintanilla
[2017-12-28] MEDS ORDERED: ACETAMINOPHEN 500 MG TAB PO PRN (16:30)
[2017-12-28] MEDS ORDERED: ONDANSETRON 4 MG/2 ML VIAL IV PRN (16:30)
[2017-12-28] MEDS ORDERED: PANTOPRAZOLE 40MG TABLET PO ONE (18:16)
[2017-12-28] MEDS ORDERED: POTASSIUM 25 MEQ EFFERV TAB ONE (19:52)
[2017-12-28 20:53] LABS: Hematocrit 31.2 % (36.0-45.0)
[2017-12-28] MEDS ORDERED: CEFTRIAXONE 1 GM/NS 50 ML 50 ML IV SCH (21:00)
[2017-12-28] MEDS ORDERED: LOPERAMIDE HCL 2 MG CAPSULE PO PRN (22:08)
[2017-12-28] MEDS: Morphine 2 MG/2 ML SYR IV PRN (23:04)
[2017-12-29 00:49] LABS: Hematocrit 31.1 % (36.0-45.0)
[2017-12-29] MEDS: Morphine 2 MG/2 ML SYR IV PRN (05:44)
[2017-12-29 05:47] LABS: Absolute Lymphocytes (CBC) 0.5 K/uL (0.7-4.9); Absolute Monocytes 0.5 K/uL (0.1-1.3); Absolute Neutrophil 1.6 K/uL (1.8-8.0); Basophils % 0.7 % (0-1.3); Eosinophils % 7.5 % (0-4.4); Hematocrit 32.7 % (36.0-45.0); Lymphocytes % 18.5 % (15.3-44.8); MCH 31.8 pg (27.0-35.0); MCV 95.6 fL (80-100); MPV 7.1 fL (7.6-11.3); Monocytes % 16.4 % (3.3-12.3); RBC Red Blood Cell Count 3.42 M/uL (3.86-4.86)
[2017-12-29 05:59] LABS: BUN Blood Urea Nitrogen 11 mg/dL (6-20); Bicarbonate 29 mEq/L (21-31); Glucose Level 96 mg/dL (65-120); Potassium 4.8 mEq/L (3.6-5.0); Sodium Level 137 mEq/L (135-145)
[2017-12-29] MEDS ORDERED: CEFTRIAXONE/SWI 1gm 1 GM/10 ML SYR IV SCH (06:00)
[2017-12-29] MEDS ORDERED: PNEUMOCOCCAL VACCINE 0.5 ML IMVAC ONE (08:00)
--- NOTE | 2017-12-29 17:55 | HP ---
Date of Admission: 12/28/2017 Chief Complaint: Rectal bleeding. History Of Present Illness: A 67-year-old female, who is known to have history of anorectal cancer f or which she is going to radiation, had diarrhea with blood in the stools. The patient was brought t o the ER. After evaluation, she is admitted. The patient denied any history of abdominal pain, naus ea, vomiting. Past Medical History: Positive for recently diagnosed anorectal cancer. Other medical problems incl ude type 2 diabetes, hypertension, COPD, hyperlipidemia. Past Surgical History: Positive for hysterectomy. Review of Systems: No chest pain or shortness of breath. Physical Examination: General: Revealed a 67-year-old female, fully alert and oriented. HEENT: Negative. Neck: Supple. JVD negative. Chest: Clear. Heart: Regular. Abdomen: Soft. Bowel sounds present. Extremities: No edema. Laboratory Data: White count at admission was 4.5, hemoglobin 12.4, hemoglobin serials, no further d rop noted this morning. Assessment: 1.Rectal bleeding, probably related to radiation treatment. 2.Anorectal cancer. 3.Hyperlipidemia. 4.Chronic obstructive pulmonary disease. Plan: The patient claims that she is feeling good and she wants to go home. I told her that she nee ds to return if she continues to have blood clots or excessive blood in the stools; however, she clai ms that she feels well enough to go home. She will be discharged and followed up by [facility]. FARIDA/TESSIE Voice ID: [id number]
== END 2017-12-29 09:03 | disposition home or self-care (01) ==
LOC: ER 10:30 → ERHOLD 16:29 → 4TH 19:33
PROVIDERS: ADMIT Internal Medicine; ATTEND Internal Medicine
DX: K62.5 Hemorrhage of anus and rectum (principal); C21.8 Malignant neoplasm of overlapping sites of rectum, anus and anal canal; E11.9 Type 2 diabetes mellitus without complications; I10 Essential (primary) hypertension; J44.9 Chronic obstructive pulmonary disease, unspecified; E78.5 Hyperlipidemia, unspecified
CPT/HCPCS: 36415; 74177; 77336; 80048 ×2; 80076; 82150; 83690; 85014 ×3; 85018 ×3; 85025 ×2; 85610; 85730; 86850; 86900; 86901; 87086; 87088; 99285; C9113; G0378 ×2; J0696 ×2; J2270 ×2; J2405 ×2; J7030; Q9967; 81003; 81015

== ENCOUNTER 2018-03-04 09:17 | Day surgery (SDC) | payer OTHER ==
[2018-02-28 15:52] LABS: Absolute Lymphocytes (CBC) 0.8 K/uL (0.7-4.9); Absolute Monocytes 0.5 K/uL (0.1-1.3); Absolute Neutrophil 3.2 K/uL (1.8-8.0); Basophils % 0.5 % (0-1.3); Eosinophils % 4.2 % (0-4.4); Hematocrit 38.5 % (36.0-45.0); Lymphocytes % 17.5 % (15.3-44.8); MCH 35.2 pg (27.0-35.0); MCV 106.3 fL (80-100); MPV 7.6 fL (7.6-11.3); Monocytes % 11.5 % (3.3-12.3); RBC Red Blood Cell Count 3.62 M/uL (3.86-4.86)
[~2018-03-04 09:17] MED LIST: CEFAZOLIN/SWI 1gm 1 GM/10 ML SYR IVP SCH
--- OUTSIDE RECORDS SUMMARY | 2018-03-04 10:08 | XMS REPORT | Clinical Summary ---
:1950 Author Organization [facility] Address [address] [place] [id number] Care Team Providers Name Role Phone Dean Ga MD Primary Care Provider Allergies No Known Allergies Current Medications No known medications Active Problems No known active problems Encounters Date Type Specialty Care Team Description 02/13/2018 Procedure Pass General Surgery 12/28/2017 Documentation General Surgery Chantel Fernandes NP-C 12/25/2017 Orders Only General Surgery Robbin Moon, Anal cancer ( Primary MD Dx) 12/18/2017 Office Visit General Surgery Robbin Moon, Anal cancer ( Primary MD Dx) after 03/03/2017 Family History Medical History Relation Name Comments [...] Treatment Date Type Specialty Care Team Description 03/14/2018 Office Visit General Surgery Robbin Moon MD [address] [facility] [address] [place] [address] Health Maintenance Due Date Last Done Comments BREAST CANCER SCREENING 01/26/2000 COLON CANCER SCREENING 01/26/2000 SHINGRIX VACCINE (#1) 01/26/2000 ZOSTER VACCINE 2010 PNEUMOCOCCAL POLYSACCHARIDE VACCINE AGE 65 AND OVER 2015 PNEUMOCOCCAL-13 2015 INFLUENZA VACCINE 04/03/2018 Results Not on fileafter 03/03/2017 Insurance Payer Benefit Plan / Group Subscriber ID Type Phone Address MEDICARE MEDICARE PART A AND B xxxxxxxxxx Medicare [place], [place] AETNA [employer] OF xxxxxxxxxx Commercial [place] y [phone] [place] [address]
[2018-03-04] MEDS ORDERED: LIDOCAINE 2% MPF 5 ML VIAL ONE (10:12)
[2018-03-04] MEDS ORDERED: PROPOFOL 200 MG/20 ML VIAL IV ONE (10:12)
[2018-03-04] MEDS ORDERED: NA CHLORIDE 0.9% 1,000 ML ONE (10:12)
[2018-03-04] MEDS ORDERED: MIDAZOLAM HCL 2 MG/2 ML INJ ONE (10:12)
[2018-03-04] MEDS ORDERED: CEFAZOLIN/SWI 1gm 1 GM/10 ML SYR ONE (10:12)
[2018-03-04] MEDS ORDERED: FENTANYL CITR 100 MCG/2 ML ONE (10:13)
[2018-03-04] MEDS ORDERED: LIDOCAINE 1% 20 ML MDV ONE (10:47)
--- NOTE | 2018-03-04 21:09 | OP ---
Date of Procedure: 03/04/2018 Surgeon: Andres Hogan MD Preoperative Diagnosis: Rectal cancer. Postoperative Diagnosis: Rectal cancer. Procedure: Removal of right chest Port-A-Cath. Estimated Blood Loss: Minimal. Specimen: Port-A-Cath device. Findings: Normal anatomy. Anesthesia: MAC. Complications: None. Disposition: The patient tolerated the procedure in stable condition and taken to Recovery in good g eneral condition. Procedure In Detail: The patient was brought to the OR and placed in supine position. MAC anesthesi a was begun. The patient was prepped and draped in the usual sterile fashion. Marcaine 0.5% was inf iltrated locally. A 15-blade was used to make a 3 cm incision. Subcu tissue was divided. Port-A-Ca th device was identified, freed from the surrounding tissue with sharp and blunt dissection. Port-A- Cath device removed and sent to Pathology for identification. Wound is irrigated. Bleeding is contr olled with cautery. A 3-0 chromic was used for subcutaneous tissue and closed the skin. Sterile ashley ssing was applied. The patient was awakened and taken to Recovery in good general condition. Discharge Note: The patient will go to day surgery and home when stable. Disposition: Home. Condition: Stable. Discharge Instructions: Resume home medications and diet. Activity as tolerated. No heavy lifting. Remove outer dressing in 2 days. Shower. Keep wound clean and dry. Keep Steri-Strips on at all t imes. Follow up in my office in 2 weeks, call for appointment. Tylenol No. 3 one tablet p.o. q.4 p. r.n. pain. /MODL Voice ID: [id number] Report ID: [id number]
== END 2018-03-04 12:28 | disposition home or self-care (01) ==
LOC: OR 09:17
PROVIDERS: ATTEND Surgery
PROC: 0JPT0WZ Removal of Totally Implantable Vascular Access Device from Trunk Subcutaneous Tissue and Fascia, Open Approach (ICD-10-PCS; principal; 2018-03-04 11:00)
DX: Z45.2 Encounter for adjustment and management of vascular access device (principal); C20 Malignant neoplasm of rectum; E11.9 Type 2 diabetes mellitus without complications; I10 Essential (primary) hypertension; I25.10 Atherosclerotic heart disease of native coronary artery without angina pectoris; J44.9 Chronic obstructive pulmonary disease, unspecified; K21.9 Gastro-esophageal reflux disease without esophagitis; J45.909 Unspecified asthma, uncomplicated
CPT/HCPCS: 36415; 36590; 82962 ×2; 85025; 88300; J0690; J2250; J3010; J7030

== ENCOUNTER 2018-06-23 17:46 | Emergency (ER) | payer OTHER ==
--- OUTSIDE RECORDS SUMMARY | 2018-06-23 17:48 | XMS REPORT | Clinical Summary ---
:1950 Author Organization [facility] Address [address] [place] [address] Care Team Providers Name Role Phone Dean Ga MD Primary Care Provider Allergies No Known Allergies Current Medications No known medications Active Problems No known active problems Encounters Date Type Specialty Care Team Description 05/02/2018 Office Visit General Surgery Robbin Moon, Anal cancer ( Primary MD Dx) 05/01/2018 Orders Only General Surgery Robbin Moon MD 04/29/2018 Orders Only General Surgery Robbin Moon MD 03/14/2018 Office Visit General Surgery Robbin Moon, Anal cancer ( Primary Dx); Radiation proctitis 02/13/2018 Procedure Pass General Surgery 12/28/2017 Documentation General Surgery Chantel Fernandes NP-C 12/25/2017 Orders Only General Surgery Robbin Moon Anal cancer ( Primary MD Dx) 12/18/2017 Office Visit General Surgery Robbin Moon Anal cancer ( Primary MD Dx) after 06/22/2017 Family History Medical History Relation Name Comments Arthritis Mother Asthma Mother Diabetes Sister Relation Name Status Comments Mother Sister Social History Tobacco Use Types Packs/Day Years Used Date Current Every Day Smoker 1 Smokeless Tobacco: Never Used Alcohol Use Drinks/Week oz/Week Comments No Sex Assigned at Date Recorded Not on file Last Filed Vital Signs Vital Sign Reading Time Taken Blood Pressure 137/76 05/02/2018 10:44 AM CDT Pulse 88 05/02/2018 10:44 AM CDT Temperature - - Respiratory Rate - - Oxygen Saturation - - Inhaled Oxygen Concentration - - Weight 68 kg (150 lb) 12/18/2017 12:57 PM CDT Height 160 cm (5' 3") 12/18/2017 12:57 PM CDT Body Mass Index 26.57 12/18/2017 12:57 PM CDT Plan of Treatment Health Maintenance Due Date Last Done Comments BREAST CANCER SCREENING 01/26/2000 COLON CANCER SCREENING 01/26/2000 SHINGRIX VACCINE (#1) 01/26/2000 ZOSTER VACCINE 2010 PNEUMOCOCCAL POLYSACCHARIDE VACCINE AGE 65 AND OVER 2015 PNEUMOCOCCAL-13 2015 INFLUENZA VACCINE 04/03/2018 Procedures Procedure Name Priority Date/Time Associated Diagnosis Comments SURGICAL PATHOLOGY Routine 04/22/2018 12:00 AM CDT REQUEST after 06/22/2017 Results Surgical pathology request (04/22/2018) Specimen Tissue Narrative Performed At after 06/22/2017 Insurance Payer Benefit Plan / Group Subscriber ID Type Phone Address MEDICARE MEDICARE PART A AND B xxxxxxxxxx Medicare [place], [place] AETNA [employer] OF xxxxxxxxxx Commercial [employer] y [phone] [place] [address]
--- OUTSIDE RECORDS SUMMARY | 2018-06-23 17:48 | XMS REPORT | Clinical Summary ---
:1950 Author Organization [facility] Address [address] [place] [address] Phone Care Team Providers Name Role Phone Unavailable Primary Care Provider Unavailable Allergies Active Allergy Reactions Severity Noted Date Comments No Known Drug Allergies Current Medications Prescription Sig. Disp. Refills Start Date End Date Status traZODone (DESYREL) Take 100 mg by Active 100 MG tablet mouth nightly. omeprazole Take 40 mg by mouth Active (PRILOSEC) 20 MG daily . capsule gabapentin Take 600 mg by Active (NEURONTIN) 600 MG mouth 4 (four) tablet times daily . atorvastatin Take 40 mg by mouth Active (LIPITOR) 40 MG daily. tablet fluticasone-salmete Inhale 2 puffs by Active rol (ADVAIR) 250-50 mouth via inhaler mcg/dose diskus every 12 (twelve) inhaler hours. HYDROcodone-acetami Take 1 tablet by Active nophen (NORCO mouth every 6 (six) 10-325) 10-325 mg hours as needed for per tablet Pain. ostomy supplies by Miscellaneous Active (DUOLOCK CURVED route. TAIL CLOSURE) Misc DULoxetine Take 60 mg by mouth Active (CYMBALTA) 60 MG daily. capsule meloxicam (MOBIC) Take 7.5 mg by Active 7.5 MG tablet mouth daily. TiZANidine Take 2 mg by mouth Active (ZANAFLEX) 2 MG daily. capsule budesonide-formoter Inhale 2 puffs by Active ol (SYMBICORT) mouth via inhaler 2 160-4.5 (two) times daily. mcg/actuation inhaler valsartan (DIOVAN) Take 320 mg by Active 320 MG tablet mouth daily. acetaminophen Take 500 mg by Active (TYLENOL) 500 MG mouth every 6 (six) tablet hours as needed for Pain. predniSONE Take 10 mg by mouth Active (DELTASONE) 10 MG 2 (two) times tablet daily. lisinopril Take 20 mg by mouth Discontinued (PRINIVIL,ZESTRIL) daily. 8 20 MG tablet HYDROcodone-acetami Take 1 tablet by Discontinued nophen (NORCO mouth every 8 8 7.5-325) 7.5-325 mg (eight) hours as per needed. tabletIndications: Pain Active Problems Problem Noted Date Anal cancer (HCC) 06/17/2018 Lumbar stenosis 02/04/2014 Encounters Date Type Specialty Care Team Description 06/17/2018 - Hospital Encounter General Internal Robbin Moon Anal cancer ( HCC) 06/19/2018 Medicine MD Pravin (Primary Dx) 06/17/2018 Procedure Pass 06/17/2018 Surgery Robbin Moon LAPAROSCOPY,COLOSTOM MD Pravin Y CREATION/REVISION 06/14/2018 Hospital Encounter Pre-Admission Robbin Moon MD 06/10/2018 Hospital Encounter Robbin Moon MD 06/10/2018 Procedure Pass 06/06/2018 Anesthesia Event Paul Hussein MD 05/27/2018 Hospital Encounter Pre-Admission Robbin Moon MD after 06/22/2017 Social History Tobacco Use Types Packs/Day Years Used Date Current Every Day Smoker 1 27 Smokeless Tobacco: Never Used Tobacco Cessation: Ready to Quit: No; Counseling Given: Yes Alcohol Use Drinks/Week oz/Week Comments Yes OCCASSIONALLY Sex Assigned at Date Recorded Not on file Last Filed Vital Signs Vital Sign Reading Time Taken Blood Pressure 142/64 06/19/2018 4:10 PM CDT Pulse 80 06/19/2018 4:10 PM CDT Temperature 36.3 C (97.3 F) 06/19/2018 4:10 PM CDT Respiratory Rate 18 06/19/2018 4:10 PM CDT Oxygen Saturation 92% 06/19/2018 4:10 PM CDT Inhaled Oxygen Concentration - - Weight 64.2 kg (141 lb 8.6 oz) 06/17/2018 10:19 AM CDT Height 160 cm (5' 3") 06/17/2018 10:19 AM CDT Body Mass Index 25.07 06/17/2018 10:19 AM CDT Plan of Treatment Not on file Implants Implanted Type Area Meeting Planner Device Expiration Model / Identifier Date Serial / Lot Sealant,Floseal Hemostatic Matrix 10ml - [id number] Cement/Fi Repeatit [id number] / Implanted: Qty: 1 on 02/04/2014 by Jey Fernandez MD ller/Chyna FORMER FUSION / sive MEDICAL Procedures Procedure Name Priority Date/Time Associated Diagnosis Comments LAPAROSCOPY,COLOSTOMY 06/17/2018 12:55 PM CDT Anal cancer (HCC) CREATION/REVISION Special Needs (CNWE) after 06/22/2017 Results POC-Glucose meter (06/19/2018 5:52 PM)Only the most recent of7 resultswithin the time period is included. Component Value Ref Range POC-Glucose Meter 136 (H)Comment: TESTED AT [address] 70 - 110 mg/[place] [address] Specimen Performing Laboratory Blood [address] [address] CBC (Hemogram only) (06/19/2018 6:24 AM)Only the most recent of2 resultswithin the time period is included. Component Value Ref Range WBC 6.2 3.5 - 10.5 K/L RBC 4.02 3.93 - 5.22 M/L Hemoglobin 13.7 11.2 - 15.7 GM/DL Hematocrit 40.2 34.1 - 44.9 % MCV 100.0 (H) 79.4 - 94.8 fL MCH 34.1 (H) 25.6 - 32.2 pg MCHC 34.1 32.2 - 35.5 GM/DL RDW 12.6 11.7 - 14.4 % Platelets 192 150 - 450 K/CU MM MPV 9.1 (L) 9.4 - 12.3 fL nRBC 0 0 - 0 /100 WBC Specimen Performing Laboratory Blood - Arm, [address] [address] Phosphorus (06/19/2018 6:24 AM)Only the most recent of2 resultswithin the time period is included. Component Value Ref Range Phosphorus 3.2 2.3 - 4.7 mg/dL Specimen Performing Laboratory Blood - Arm, [address] [address] Magnesium (06/19/2018 6:24 AM)Only the most recent of2 resultswithin the time period is included. Component Value Ref Range Magnesium 2.2 1.6 - 2.6 mg/dL Specimen Performing Laboratory Blood - Arm, [address] [address] Basic Metabolic Panel (06/19/2018 6:24 AM)Only the most recent of2 resultswithin the time period is included. Component Value Ref Range Sodium 132 (L) 136 - 145 meq/L Potassium 3.3 (L) 3.5 - 5.1 meq/L Chloride 99 98 - 107 meq/L CO2 24 22 - 29 meq/L BUN 11 7 - 21 mg/dL Creatinine 0.61 0.57 - 1.25 mg/dL Glucose 112 (H) 70 - 105 mg/dL Calcium 8.7 8.4 - 10.2 mg/dL EGFR 98Comment: ESTIMATED GFR IS NOT ACCURATE mL/min/1.73 sq m CREATININE CLEARANCE IN PREDICTING GLOMERULAR FILTRATION RATE. ESTIMATED GFR IS NOT APPLICABLE FOR DIALYSIS PATIENTS. Specimen Performing Laboratory Blood - Arm, [address] [address] Hemoglobin A1c (06/18/2018 6:31 AM) Component Value Ref Range Hemoglobin A1C 5.1 4.3 - 6.1 % Specimen Performing Laboratory Blood [address] [address] Tissue Exam (06/17/2018 4:51 PM) Component Value Ref Range Case Report Surgical Pathology Report Case: [id number] Authorizing Provider:Robbin Moon MDCollected: 06/17/2018 1651 Ordering Location: [facility] Received: 06/18/2018 0815 SERVICES Pathologist: Barb Sandoval MD Specimens: A) - Soft Tissue, Other, RECTAL MASS R/O ANAL CANCER #1 B) - Soft Tissue, Other, RECTAL MASS R/O ANAL CANCER #2 C) - Soft Tissue, Other, RECTAL MASS R/O ANAL CANCER #3 DIAGNOSIS A. RECTUM, SOFT TISSUE , MASS, EXCISION: -CAUTARIZED SQUAMOUS EPITHELIUM WITH ULCERATION, GRANULATION TISSUE -NEGATIVE FOR DYSPLASIA OR MALIGNANCY B. RECTUM, SOFT TISSUE , MASS, EXCISION: - FIBROMUSCULAR TISSUEWITH FOCAL FIBRINOPURULENT EXUDATE - NEGATIVE FOR MALIGNANCY C. RECTUM, SOFT TISSUE , MASS, EXCISION: - PARTLY CAUTARIZED SQUAMOUS EPITHELIUM WITH ULCERATION, GRANULATION TISSUE AND REACTIVE CHANGES -NEGATIVE FOR DYSPLASIA OR MALIGNANCY Signing Pathologist Direct Phone Line: [phone] CPT Code(s) 33129 X 3 CLINICAL HISTORY Anal cancer, rule out anal cancer SPECIMEN SOURCE A. Rectal mass biopsy #1. B. Rectal mass #2. C. Rectal mass #3 GROSS DESCRIPTION Specimen is received in three parts all labeled with the patient's information. Specimen A: Labeled "rectal mass" consists of a segment of pugh-red soft tissue measuring 0.5 x 0.3 x 0.1 cm submitted entirely in A1. Specimen B: Labeled "rectal mass #2" consists of a cauterized segment of pugh tissue measuring 0.8 x 0.5 x 0.3 cm. The specimen is inked blue, sectioned and submitted entirely in B1. Specimen C: Labeled "rectal mass #3" consists of a segment of pugh-red soft tissue measuring 0.8 x 0.6 x 0.4 cm. The cauterized end is inked blue. The specimen is bisected and submitted entirely in C1. CG/ew SPECIAL STUDIES The following special studies were performed on this case and the interpretation is incorporated in the diagnostic report above: Performed Specimen Performing Laboratory Tissue - Soft Tissue, Other [address] [address] TRANSFUSION SERVICE REPORT - SCAN (05/28/2018 6:05 PM)Platelet count (2017 12:35 PM) Component Value Ref Range Platelets 191 150 - 450 K/CU MM Specimen Performing Laboratory Blood [address] [address] Hemoglobin (05/27/2018 12:35 PM) Component Value Ref Range Hemoglobin 13.9 11.2 - 15.7 GM/DL Specimen Performing Laboratory Blood [address] [address] Type and screen, automated (05/27/2018 12:34 PM) Component Value Ref Range Ab Scrn NEGATIVEComment: done on echo Specimen Performing Laboratory Blood [address] [address] ABORH, manual (05/27/2018 12:34 PM) Component Value Ref Range ABO Grouping B Rh Factor POS Specimen Performing Laboratory Blood [address] [address] BUN and Creatinine (05/27/2018 12:34 PM) Component Value Ref Range BUN 18 7 - 21 mg/dL Creatinine 0.73 0.57 - 1.25 mg/dL EGFR 79Comment: ESTIMATED GFR IS NOT ACCURATE mL/min/1.73 sq m CREATININE CLEARANCE IN PREDICTING GLOMERULAR FILTRATION RATE. ESTIMATED GFR IS NOT APPLICABLE FOR DIALYSIS PATIENTS. Specimen Performing Laboratory Blood [address] [address] Glucose (05/27/2018 12:34 PM) Component Value Ref Range Glucose 84 70 - 105 mg/dL Specimen Performing Laboratory Blood [address] [address] Electrolytes (05/27/2018 12:34 PM) Component Value Ref Range Sodium 138 136 - 145 meq/L Potassium 4.6 3.5 - 5.1 meq/L Chloride 103 98 - 107 meq/L CO2 28 22 - 29 meq/L Specimen Performing Laboratory Blood [address] [address] after 06/22/2017
--- OUTSIDE RECORDS SUMMARY | 2018-06-23 17:49 | XMS REPORT ---
:1950 Author Organization [facility] Address [address] [place] [address] [address]. [address] [place] [address] Care Team Providers Name Role Phone ANN MOON Unavailable Unavailable Problems This patient has no known problems. Allergies, Adverse Reactions, Alerts This patient has no known allergies or adverse reactions. Medications This patient has no known medications. Results Test Description Test Time Test Comments Text Results Atomic Results Result Comments TISSUE EXAM 2018-06-20 18:07:00 Surgical Pathology Report Case: [id number] Authorizing Provider: Ann Moon MD Collected: 06/17/2018 1651 Ordering Location: [facility] Received: 06/18/2018 0815 SERVICES Pathologist: Barb Sandoval MD Specimens: A) - Soft Tissue, Other, RECTAL MASS R/O ANAL CANCER #1 B) - Soft Tissue, Other, RECTAL MASS R/O ANAL CANCER #2 C) - Soft Tissue, Other, RECTAL MASS R/O ANAL CANCER #3 A. RECTUM, SOFT TISSUE , MASS, EXCISION: - CAUTARIZED SQUAMOUS EPITHELIUM WITH ULCERATION, GRANULATION TISSUE - NEGATIVE FOR DYSPLASIA OR MALIGNANCY B. RECTUM, SOFT TISSUE , MASS, EXCISION: - FIBROMUSCULAR TISSUE WITH FOCAL FIBRINOPURULENT EXUDATE - NEGATIVE FOR MALIGNANCY C. RECTUM, SOFT TISSUE , MASS, EXCISION: - PARTLY CAUTARIZED SQUAMOUS EPITHELIUM WITH ULCERATION, GRANULATION TISSUE AND REACTIVE CHANGES - NEGATIVE FOR DYSPLASIA OR MALIGNANCY Signing Pathologist Direct Phone Line: [phone] signed by Barb Sandoval MD on 06/20/2018 at 6:07 [id number] X 3 Anal cancer, rule out anal cancerA. Rectal mass biopsy #1. B. Rectal mass #2. C. Rectal mass #3Specimen is received in three parts all labeled [...] bisected and submitted entirely in C1. CG/ew The following special studies were performed on this case and the interpretation is incorporated in the diagnostic report above:Performed POCT-GLUCOSE METER 2018-06-19 18:28:00 Test Item Value Reference Range Comments POC-GLUCOSE METER (BEAKER) (test 136 mg/dL 70-110 TESTED AT [address] uxrt=5639) [facility] [id number] POCT-GLUCOSE [id number] 12:24:00 Test Item Value Reference Range Comments POC-GLUCOSE METER (BEAKER) 83 mg/dL 70-110 TESTED AT [address] (test bvqt=2176) [place] [id number] 07:38:00 Test Item Value Reference Range Comments PHOSPHORUS (BEAKER) (test mruu=291) 3.2 mg/dL 2.3-4.7 [id number] 07:38:00 Test Item Value Reference Range Comments MAGNESIUM (BEAKER) (test cxqv=789) 2.2 mg/dL 1.6-2.6 BASIC METABOLIC [id number] 07:38:00 Test Item Value Reference Range Comments SODIUM (BEAKER) (test 132 meq/L 136-145 hdby=404) POTASSIUM (BEAKER) (test 3.3 meq/L 3.5-5.1 qxdc=702) CHLORIDE (BEAKER) (test 99 meq/L 98-107 rqfc=899) CO2 (BEAKER) (test 24 meq/L 22-29 hnre=488) BLOOD UREA NITROGEN 11 mg/dL 7-21 (BEAKER) (test ltxp=910) CREATININE (BEAKER) (test 0.61 mg/dL 0.57-1.25 rded=203) GLUCOSE RANDOM (BEAKER) 112 mg/dL 70-105 (test rpqt=625) CALCIUM (BEAKER) (test 8.7 mg/dL 8.4-10.2 rynu=437) EGFR (BEAKER) (test 98 mL/min/1.73 sq m ESTIMATED GFR IS NOT uqxk=2033) ACCURATE CREATININE CLEARANCE IN PREDICTING GLOMERULAR FILTRATION RATE. ESTIMATED GFR IS NOT APPLICABLE FOR DIALYSIS PATIENTS. CBC (HEMOGRAM ONLY)2018-06-19 06:39:00 Test Item Value Reference Range Comments WHITE BLOOD CELL COUNT (BEAKER) (test olyk=353) 6.2 K/ L 3.5-10.5 RED BLOOD CELL COUNT (BEAKER) (test tqjx=049) 4.02 M/ L 3.93-5.22 HEMOGLOBIN (BEAKER) (test mquy=650) 13.7 GM/DL 11.2-15.7 HEMATOCRIT (BEAKER) (test blir=418) 40.2 % 34.1-44.9 MEAN CORPUSCULAR VOLUME (BEAKER) (test xmfe=076) 100.0 fL 79.4-94.8 MEAN CORPUSCULAR HEMOGLOBIN (BEAKER) (test 34.1 pg 25.6-32.2 cfdi=899) MEAN CORPUSCULAR HEMOGLOBIN CONC (BEAKER) (test 34.1 GM/DL 32.2-35.5 qwrb=932) RED CELL DISTRIBUTION WIDTH (BEAKER) (test 12.6 % 11.7-14.4 zini=990) PLATELET COUNT (BEAKER) (test dyiz=726) 192 K/CU MM 150-450 MEAN PLATELET VOLUME (BEAKER) (test gbxj=436) 9.1 fL 9.4-12.3 NUCLEATED RED BLOOD CELLS (BEAKER) (test 0 /100 WBC 0-0 acbu=472) POCT-GLUCOSE [id number] 23:51:00 Test Item Value Reference Range Comments POC-GLUCOSE METER (BEAKER) 112 mg/dL 70-110 TESTED AT [address] (test hrxw=7077) [facility] [address] POCT-GLUCOSE [id number] 17:29:00 Test Item Value Reference Range Comments POC-GLUCOSE METER (BEAKER) 169 mg/dL 70-110 TESTED AT [address] (test djkq=6383) [facility] [address] POCT-GLUCOSE [id number] 13:08:00 Test Item Value Reference Range Comments POC-GLUCOSE METER (BEAKER) 112 mg/dL 70-110 TESTED AT [facility] [address] (test wbcx=7188) [facility] [address] HEMOGLOBIN [id number] 08:46:00 Test Item Value Reference Range Comments HEMOGLOBIN A1C (BEAKER) (test dlzi=733) 5.1 % 4.3-6.1 [id number] 06:57:00 Test Item Value Reference Range Comments PHOSPHORUS (BEAKER) (test byeg=107) 3.2 mg/dL 2.3-4.7 [id number] 06:57:00 Test Item Value Reference Range Comments MAGNESIUM (BEAKER) (test iyma=757) 2.4 mg/dL 1.6-2.6 BASIC METABOLIC [id number] 06:57:00 Test Item Value Reference Range Comments SODIUM (BEAKER) (test 139 meq/L 136-145 tlnf=719) POTASSIUM (BEAKER) (test 3.5 meq/L 3.5-5.1 nrxr=845) CHLORIDE (BEAKER) (test 102 meq/L 98-107 kyog=829) CO2 (BEAKER) (test 26 meq/L 22-29 altw=241) BLOOD UREA NITROGEN 10 mg/dL 7-21 (BEAKER) (test btvj=668) CREATININE (BEAKER) (test 0.62 mg/dL 0.57-1.25 jztb=140) GLUCOSE RANDOM (BEAKER) 84 mg/dL 70-105 (test fwlu=754) CALCIUM (BEAKER) (test 8.7 mg/dL 8.4-10.2 eujj=179) EGFR (BEAKER) (test 96 mL/min/1.73 sq m ESTIMATED GFR IS NOT krxj=5381) ACCURATE CREATININE CLEARANCE IN PREDICTING GLOMERULAR FILTRATION RATE. ESTIMATED GFR IS NOT APPLICABLE FOR DIALYSIS PATIENTS. CBC (HEMOGRAM ONLY)2018-06-18 06:43:00 Test Item Value Reference Range Comments WHITE BLOOD CELL COUNT (BEAKER) (test pjjc=811) 7.4 K/ L 3.5-10.5 RED BLOOD CELL COUNT (BEAKER) (test bljp=928) 4.34 M/ L 3.93-5.22 HEMOGLOBIN (BEAKER) (test ppra=788) 14.6 GM/DL 11.2-15.7 HEMATOCRIT (BEAKER) (test stag=203) 45.2 % 34.1-44.9 MEAN CORPUSCULAR VOLUME (BEAKER) (test hvcg=411) 104.1 fL 79.4-94.8 MEAN CORPUSCULAR HEMOGLOBIN (BEAKER) (test 33.6 pg 25.6-32.2 ozag=954) MEAN CORPUSCULAR HEMOGLOBIN CONC (BEAKER) (test 32.3 GM/DL 32.2-35.5 ymzj=935) RED CELL DISTRIBUTION WIDTH (BEAKER) (test 13.2 % 11.7-14.4 zbke=382) PLATELET COUNT (BEAKER) (test imwn=077) 204 K/CU MM 150-450 MEAN PLATELET VOLUME (BEAKER) (test pkjq=014) 9.1 fL 9.4-12.3 NUCLEATED RED BLOOD CELLS (BEAKER) (test 0 /100 WBC 0-0 bmig=387) POCT-GLUCOSE [id number] 19:08:00 Test Item Value Reference Range Comments POC-GLUCOSE METER (BEAKER) 120 mg/dL 70-110 TESTED AT [address] (test vwsl=7017) [place] [id number] POCT-GLUCOSE [id number] 10:26:00 Test Item Value Reference Range Comments POC-GLUCOSE METER (BEAKER) 89 mg/dL 70-110 TESTED AT [address] (test ngrf=3788) [place] [address] [id number] 13:59:00 Test Item Value Reference Range Comments SODIUM (BEAKER) (test ellg=711) 138 meq/L 136-145 POTASSIUM (BEAKER) (test scgq=118) 4.6 meq/L 3.5-5.1 CHLORIDE (BEAKER) (test uwgn=290) 103 meq/L 98-107 CO2 (BEAKER) (test nkqb=433) 28 meq/L 22-29 [id number] 13:59:00 Test Item Value Reference Range Comments GLUCOSE RANDOM (BEAKER) (test qfqr=721) 84 mg/dL 70-105 BUN AND [id number] 13:59:00 Test Item Value Reference Range Comments BLOOD UREA NITROGEN 18 mg/dL 7-21 (BEAKER) (test qbwc=197) CREATININE (BEAKER) (test 0.73 mg/dL 0.57-1.25 rqjb=781) EGFR (BEAKER) (test 79 mL/min/1.73 sq m ESTIMATED GFR IS NOT khkn=3539) ACCURATE CREATININE CLEARANCE IN PREDICTING GLOMERULAR FILTRATION RATE. ESTIMATED GFR IS NOT APPLICABLE FOR DIALYSIS PATIENTS. [id number] 13:41:00 Test Item Value Reference Range Comments HEMOGLOBIN (JENNIFERAKER) (test dnte=482) 13.9 GM/DL 11.2-15.7 PLATELET [id number] 13:41:00 Test Item Value Reference Range Comments PLATELET COUNT (JENNIFERAKER) (test luph=010) 191 K/CU MM 150-450
--- NOTE | 2018-06-23 19:41 | EDPHYS ---
Physician Documentation [facility] Name: Jess Terry Age: 68 yrs Sex: Female : 1950 Arrival Date: 06/23/2018 Time: 17:49 Bed 27 Private MD: Dean Natarajan R ED Physician Donte English HPI: 06/23 19:09 This 68 yrs old Female presents to ER via Ambulatory with complaints of jr8 Colostomy bag leaking. 19:09 Patient had recent colostomy placed. Stated that her bag is leaking. No equipment at jr8 home yet. Severity of symptoms: At their worst the symptoms were mild in the emergency department the symptoms are unchanged. The patient has not experienced similar symptoms in the past. The patient has been recently seen by a physician:. Historical: - Allergies: 18:11 No Known Allergies; aj1 - Home Meds: 18:13 atorvastatin 40 mg Oral tab 1 tab once daily [Active]; duloxetine 60 mg Oral cpDR 1 cap aj1 once daily [Active]; gabapentin 600 mg Oral tab 1 tab 3 times per day [Active]; glimepiride 1 mg Oral tab 1 tab once daily [Active]; hydrocodone-acetaminophen 10-325 mg Oral tab 1 tab every 4-6 hours [Active]; meloxicam 7.5 mg Oral tab 1 tab once daily [Active]; omeprazole 20 mg Oral cpDR 1 cap once daily [Active]; Symbicort 80-4.5 mcg/actuation inhalation HFAA 2 puffs 2 times per day [Active]; tizanidine 2 mg Oral cap 2 caps every 6 hours [Active]; trazodone 100 mg Oral tab 1 tab 2 times per day [Active]; Tylenol Extra Strength 500 mg Oral tab 1 tab every 4-6 hours [Active]; valsartan 320 mg Oral tab 1 tab once daily [Active]; - PMHx: 18:11 COPD; Hyperlipidemia; Hypertension; aj1 - PSHx: 18:13 back; Hysterectomy; aj1 - Immunization history:: Flu vaccine is up to date. - Social history:: Smoking status: Patient uses tobacco products, smokes one pack cigarettes per day. - Ebola Screening: : Patient denies travel to an Ebola-affected area in the 21 days before illness onset. ROS: 19:09 Eyes: Negative for injury, pain, redness, and discharge, ENT: Negative for injury, jr8 pain, and discharge, Neck: Negative for injury, pain, and swelling, Cardiovascular: Negative for chest pain, palpitations, and edema, Respiratory: Negative for shortness of breath, cough, wheezing, and pleuritic chest pain, Abdomen/GI: Negative for abdominal pain, nausea, vomiting, diarrhea, and constipation, Back: Negative for injury and pain, MS/Extremity: Negative for injury and deformity, Skin: Negative for injury, rash, and discoloration, Neuro: Negative for headache, weakness, numbness, tingling, and seizure. Exam: 19:09 Eyes: Pupils equal round and reactive to light, extra-ocular motions intact. Lids and jr8 lashes normal. Conjunctiva and sclera are non-icteric and not injected. Cornea within normal limits. Periorbital areas with no swelling, redness, or edema. ENT: Nares patent. No nasal discharge, no septal abnormalities noted. Tympanic membranes are normal and external auditory canals are clear. Oropharynx with no redness, swelling, or masses, exudates, or evidence of obstruction, uvula midline. Mucous membranes moist. Neck: Trachea midline, no thyromegaly or masses palpated, and no cervical lymphadenopathy. Supple, full range of motion without nuchal rigidity, or vertebral point tenderness. No Meningismus. Cardiovascular: Regular rate and rhythm with a normal S1 and S2. No gallops, murmurs, or rubs. Normal PMI, no JVD. No pulse deficits. Respiratory: Lungs have equal breath sounds bilaterally, clear to auscultation and percussion. No rales, rhonchi or wheezes noted. No increased work of breathing, no retractions or nasal flaring. Abdomen/GI: Soft, non-tender, with normal bowel sounds. No distension or tympany. No guarding or rebound. No evidence of tenderness throughout. Back: No spinal tenderness. No costovertebral tenderness. Full range of motion. Skin: Warm, dry with normal turgor. Normal color with no rashes, no lesions, and no evidence of cellulitis. MS/ Extremity: Pulses equal, no cyanosis. Neurovascular intact. Full, normal range of motion. Neuro: Awake and alert, GCS 15, oriented to person, place, time, and situation. Cranial nerves II-XII grossly intact. Motor strength 5/5 in all extremities. Sensory grossly intact. Cerebellar exam normal. Normal gait. Vital Signs: 18:13 BP 116 / 62; Pulse 92; Resp 20; Temp 97.1; Pulse Ox 95% on R/A; Weight 67.13 kg (R); aj1 Height 5 ft. 3 in. (160.02 cm) (R); Pain 0/10; 19:17 BP 133 / 56; rv 19:54 BP 133 / 60; rv 18:13 Body Mass Index 26.22 (67.13 kg, 160.02 cm) aj1 MDM: 18:24 Patient medically screened. jr8 19:38 Data reviewed: vital signs, nurses notes, and as a result, I will discharge patient. jr8 Data interpreted: Pulse oximetry: on room air is 95 %. Interpretation: normal. Counseling: I had a detailed discussion with the patient and/or guardian regarding: the historical points, exam findings, and any diagnostic results supporting the discharge/admit diagnosis, the need for outpatient follow up, a colorectal specialist, to return to the emergency department if symptoms worsen or persist or if there are any questions or concerns that arise at home. Administered Medications: No medications were administered Disposition: 06/23/18 19:40 Discharged to Home. Impression: Encounter for attention to colostomy. - Condition is Stable. - Discharge Instructions: Colostomy Home Guide, Adult. - Medication Reconciliation Form, Thank You Letter, Antibiotic Education, Prescription Opioid Use form. - Follow up: Private Physician; When: 1 week; Reason: Recheck today's complaints, Continuance of care, Re-evaluation by your physician. - Problem is new. - Symptoms have improved. Addendum: 06/26/2018 07:56 Co-signature as Attending Physician, Donte English MD I agree with the assessment and k dr plan of care. Signatures: Soha Lemus RN RN aj1 Donte English MD MD kdr Janusz Earl PA PA jr8 Jose Hernandez RN RN rv Corrections: (The following items were deleted from the chart) 06/23 19:54 19:40 06/23/2018 19:40 Discharged to Home. Impression: Encounter for attention to rv colostomy. Condition is Stable. Forms are Medication Reconciliation Form, Thank You Letter, Antibiotic Education, Prescription Opioid Use. Follow up: Private Physician; When: 1 week; Reason: Recheck today's complaints, Continuance of care, Re-evaluation by your physician. Problem is new. Symptoms have improved. jr8
--- NOTE | 2018-06-23 19:41 | ER ---
Nurse's Notes [facility] Name: Jess Terry Age: 68 yrs Sex: Female : 1950 Arrival Date: 06/23/2018 Time: 17:49 Bed 27 Private MD: Dean Natarajan R Diagnosis: Encounter for attention to colostomy Presentation: 06/23 18:04 Presenting complaint: Patient states: The colostomy bag that she put on last Sunday has aj1 been leaking. States that she has a nurse that comes to the house who ordered her some more supplies but she doesn't have any and doesn't know where to buy more. Transition of care: patient was not received from another setting of care. Onset of symptoms was June 23, 2018. Risk Assessment: Do you want to hurt yourself or someone else? Patient reports no desire to harm self or others. Initial Sepsis Screen: Does the patient meet any 2 criteria? HR > 90 bpm. No. Patient's initial sepsis screen is negative. Does the patient have a suspected source of infection? No. Patient's initial sepsis screen is negative. Care prior to arrival: None. 18:04 Method Of Arrival: Ambulatory aj1 18:04 Acuity: MARE 5 aj1 Triage Assessment: 18:13 General: Appears in no apparent distress. comfortable, Behavior is calm, cooperative, aj1 appropriate for age. Pain: Denies pain. Neuro: Level of Consciousness is awake, alert, obeys commands. Cardiovascular: Patient's skin is warm and dry. Respiratory: Airway is patent Respiratory effort is even, unlabored, Respiratory pattern is regular, symmetrical. Historical: - Allergies: 18:11 No Known Allergies; aj1 - Home Meds: 18:13 atorvastatin 40 mg Oral tab 1 tab once daily [Active]; duloxetine 60 mg Oral cpDR 1 cap aj1 once daily [Active]; gabapentin 600 mg Oral tab 1 tab 3 times per day [Active]; glimepiride 1 mg Oral tab 1 tab once daily [Active]; hydrocodone-acetaminophen 10-325 mg Oral tab 1 tab every 4-6 hours [Active]; meloxicam 7.5 mg Oral tab 1 tab once daily [Active]; omeprazole 20 mg Oral cpDR 1 cap once daily [Active]; Symbicort 80-4.5 mcg/actuation inhalation HFAA 2 puffs 2 times per day [Active]; tizanidine 2 mg Oral cap 2 caps every 6 hours [Active]; trazodone 100 mg Oral tab 1 tab 2 times per day [Active]; Tylenol Extra Strength 500 mg Oral tab 1 tab every 4-6 hours [Active]; valsartan 320 mg Oral tab 1 tab once daily [Active]; - PMHx: 18:11 COPD; Hyperlipidemia; Hypertension; aj1 - PSHx: 18:13 back; Hysterectomy; aj1 - Immunization history:: Flu vaccine is up to date. - Social history:: Smoking status: Patient uses tobacco products, smokes one pack cigarettes per day. - Ebola Screening: : Patient denies travel to an Ebola-affected area in the 21 days before illness onset. Screenin:16 Abuse screen: Denies threats or abuse. Denies injuries from another. Nutritional rv screening: No deficits noted. Tuberculosis screening: No symptoms or risk factors identified. Fall Risk None identified. Assessment: 18:30 General: Appears in no apparent distress. comfortable, Behavior is calm, cooperative. rv 18:30 Pain: Denies pain. Neuro: Level of Consciousness is awake, alert, obeys commands, rv Oriented to person, place, time, situation. Cardiovascular: Capillary refill < 3 seconds. Respiratory: Airway is patent. 19:15 GI: Colostomy site colostomy bag is leaking. : No signs and/or symptoms were reported rv regarding the genitourinary system. EENT: No signs and/or symptoms were reported regarding the EENT system. Derm: Skin is intact. 19:17 Reassessment: Patient appears in no apparent distress at this time. Patient and/or rv family updated on plan of care and expected duration. Pain level reassessed. Patient is alert, oriented x 3, equal unlabored respirations, skin warm/dry/pink. awaiting material (paste) for ostomy bag replacement. 19:53 Reassessment: Patient appears in no apparent distress at this time. Patient and/or rv family updated on plan of care and expected duration. Pain level reassessed. Patient is alert, oriented x 3, equal unlabored respirations, skin warm/dry/pink. OSTOMY BAG CHANGED. CHECKED FOR LEAKING. Vital Signs: 18:13 BP 116 / 62; Pulse 92; Resp 20; Temp 97.1; Pulse Ox 95% on R/A; Weight 67.13 kg (R); aj1 Height 5 ft. 3 in. (160.02 cm) (R); Pain 0/10; 19:17 BP 133 / 56; rv 19:54 BP 133 / 60; rv 18:13 Body Mass Index 26.22 (67.13 kg, 160.02 cm) aj1 ED Course: 17:49 Patient arrived in ED. mr 17:50 Dean Natarajan MD is Private Physician. mr 18:10 Triage completed. aj1 18:13 Arm band placed on Patient placed in an exam room. aj1 18:24 Janusz Earl PA is PHCP. jr8 18:24 Donte English MD is Attending Physician. jr8 19:16 Patient has correct armband on for positive identification. Bed in low position. Call rv light in reach. Side rails up X 1. Adult w/ patient. Pulse ox on. NIBP on. 19:52 No provider procedures requiring assistance completed. Patient did not have IV access rv during this emergency room visit. Administered Medications: No medications were administered Outcome: 19:40 Discharge ordered by . jr 19:53 Discharged to home ambulatory. rv 19:53 Condition: improved 19:53 Discharge instructions given to patient, family, Instructed on discharge instructions, follow up and referral plans. OSTOMY CARE. Demonstrated understanding of instructions, follow-up care, medications, OSTOMY CARE 19:54 Patient left the ED. rv Signatures: Soha Lemus RN RN aj1 Charity Rocha mr Janusz Earl PA PA jr8 Jose Hernandez RN RN rv Corrections: (The following items were deleted from the chart) 19:16 18:30 Respiratory: Airway is patent rv rv
== END 2018-06-23 19:54 | disposition home or self-care (01) ==
LOC: ER 17:46
DX: Z43.3 Encounter for attention to colostomy (principal); J44.9 Chronic obstructive pulmonary disease, unspecified; E78.5 Hyperlipidemia, unspecified; I10 Essential (primary) hypertension
CPT/HCPCS: 99283

== ENCOUNTER 2018-07-07 13:02 | Emergency (ER) | payer OTHER ==
--- OUTSIDE RECORDS SUMMARY | 2018-07-07 13:04 | XMS REPORT | Clinical Summary ---
:1950 Author Organization [facility] Address [address] [place] [id number] Care Team Providers Name Role Phone Dean Ga MD Primary Care Provider Allergies No Known Allergies Current Medications No known medications Active Problems No known active problems Encounters Date Type Specialty Care Team Description 06/27/2018 Office Visit General Surgery Robbin Moon Anal cancer ( HCC) (Primary Dx) 06/27/2018 Orders Only General Surgery Robbin Moon MD 05/02/2018 Office Visit General Surgery Robbin Moon Anal cancer ( Primary MD Dx) 05/01/2018 Orders Only General Surgery Robbin Moon MD 04/29/2018 Orders Only General Surgery Robbin Moon MD 03/14/2018 Office Visit General Surgery Robbin Moon Anal cancer ( Primary Dx); Radiation proctitis 02/13/2018 Procedure Pass General Surgery 12/28/2017 Documentation General Surgery Chantel Fernandes NP-C 12/25/2017 Orders Only General Surgery Robbin Moon Anal cancer ( Primary Dx) 12/18/2017 Office Visit General Surgery Robbin Moon Anal cancer ( Primary MD Dx) after 07/06/2017 Family History Medical History Relation Name Comments Arthritis Mother Asthma Mother Diabetes Sister Relation Name Status Comments Mother Sister Social History Tobacco Use Types Packs/Day Years Used Date Current Every Day Smoker 1 Smokeless Tobacco: Never Used Alcohol Use Drinks/Week oz/Week Comments No Sex Assigned at Date Recorded Not on file Last Filed Vital Signs Vital Sign Reading Time Taken Blood Pressure 137/73 06/27/2018 2:33 PM CDT Pulse 98 06/27/2018 2:33 PM CDT Temperature 36.6 C (97.9 F) 06/27/2018 2:33 PM CDT Respiratory Rate - - Oxygen Saturation - - Inhaled Oxygen Concentration - - Weight 68 kg (150 lb) 12/18/2017 12:57 PM CDT Height 160 cm (5' 3") 12/18/2017 12:57 PM CDT Body Mass Index 26.57 12/18/2017 12:57 PM CDT Plan of Treatment Date Type Specialty Care Team Description 09/17/2018 Office Visit General Surgery Robbin Moon MD [address] [facility] [address] [place] [id number] Health Maintenance Due Date Last Done Comments BREAST CANCER SCREENING 01/26/2000 COLON CANCER SCREENING 01/26/2000 SHINGRIX VACCINE (#1) 01/26/2000 ZOSTER VACCINE 2010 PNEUMOCOCCAL POLYSACCHARIDE VACCINE AGE 65 AND OVER 2015 PNEUMOCOCCAL-13 2015 INFLUENZA VACCINE 04/03/2018 Procedures Procedure Name Priority Date/Time Associated Diagnosis Comments SURGICAL PATHOLOGY Routine 06/17/2018 12:00 AM CDT REQUEST SURGICAL PATHOLOGY Routine 04/22/2018 12:00 AM CDT REQUEST after 07/06/2017 Results Surgical pathology request (06/17/2018)Only the most recent of2 resultswithin the time period is included. Specimen Tissue Narrative Performed At after 07/06/2017 Insurance Payer Benefit Plan / Group Subscriber ID Type Phone Address MEDICARE MEDICARE PART A AND B xxxxxxxxxx Medicare [place], [place] [employer] xxxxxxxxxx Commercial [employer] [phone] [place] [id number]
--- OUTSIDE RECORDS SUMMARY | 2018-07-07 13:05 | XMS REPORT ---
:1950 [facility] Address [address] [place] [address] [address] [place] [address] Care Team Providers Name Role Phone ANN MOON Unavailable Unavailable Problems This patient has no known problems. Allergies, Adverse Reactions, Alerts This patient has no known allergies or adverse reactions. Medications This patient has no known medications. Results Test Description Test Time Test Comments Text Results Atomic Results Result Comments TISSUE EXAM 2018-06-20 18:07:00 Surgical Pathology Report Case: [id number] Authorizing Provider: Ann Moon MD Collected: 06/17/2018 1651 Ordering Location: [facility] PERIOPERATIVE Received: 06/18/2018 0815 SERVICES Pathologist: Barb [...] OR MALIGNANCY Signing Pathologist Direct Phone Line: [phone] signed by Barb Sandoval MD on 06/20/2018 at 6:07 [id number] X 3 Anal cancer, rule out anal [...] (BEAKER) (test 136 mg/dL 70-110 TESTED AT [address] wmtv=0937) [facility] [address] POCT-GLUCOSE [id number] 12:24:00 Test Item Value Reference Range Comments POC-GLUCOSE METER (BEAKER) 83 mg/dL 70-110 TESTED AT [address] (test qeza=0584) [place] [id number] 07:38:00 Test Item Value Reference Range Comments PHOSPHORUS (BEAKER) (test sulp=039) 3.2 mg/dL 2.3-4.7 [id number] 07:38:00 Test Item Value Reference Range Comments MAGNESIUM (BEAKER) (test hnns=737) 2.2 mg/dL 1.6-2.6 BASIC METABOLIC [id number] 07:38:00 Test Item Value Reference Range Comments SODIUM (BEAKER) (test 132 meq/L 136-145 yviz=912) POTASSIUM (BEAKER) (test 3.3 meq/L 3.5-5.1 jtvr=751) CHLORIDE (BEAKER) (test 99 meq/L 98-107 mgld=618) CO2 (BEAKER) (test 24 meq/L 22-29 henk=298) BLOOD UREA NITROGEN 11 mg/dL 7-21 (BEAKER) (test dxkq=458) CREATININE (BEAKER) (test 0.61 mg/dL 0.57-1.25 gtyb=260) GLUCOSE RANDOM (BEAKER) 112 mg/dL 70-105 (test hpan=248) CALCIUM (BEAKER) (test 8.7 mg/dL 8.4-10.2 qdce=569) EGFR (BEAKER) (test 98 mL/min/1.73 sq m ESTIMATED GFR IS NOT cbpa=5095) ACCURATE CREATININE CLEARANCE IN PREDICTING GLOMERULAR FILTRATION RATE. ESTIMATED GFR IS NOT APPLICABLE FOR DIALYSIS PATIENTS. CBC (HEMOGRAM ONLY)2018-06-19 06:39:00 Test Item Value Reference Range Comments WHITE BLOOD CELL COUNT (BEAKER) (test ykjr=947) 6.2 K/ L 3.5-10.5 RED BLOOD CELL COUNT (BEAKER) (test yzwn=116) 4.02 M/ L 3.93-5.22 HEMOGLOBIN (BEAKER) (test umtu=298) 13.7 GM/DL 11.2-15.7 HEMATOCRIT (BEAKER) (test ndpv=870) 40.2 % 34.1-44.9 MEAN CORPUSCULAR VOLUME (BEAKER) (test scdg=765) 100.0 fL 79.4-94.8 MEAN CORPUSCULAR HEMOGLOBIN (BEAKER) (test 34.1 pg 25.6-32.2 sojb=802) MEAN CORPUSCULAR HEMOGLOBIN CONC (BEAKER) (test 34.1 GM/DL 32.2-35.5 dznu=819) RED CELL DISTRIBUTION WIDTH (BEAKER) (test 12.6 % 11.7-14.4 qvcp=825) PLATELET COUNT (BEAKER) (test ykox=051) 192 K/CU MM 150-450 MEAN PLATELET VOLUME (BEAKER) (test fkct=324) 9.1 fL 9.4-12.3 NUCLEATED RED BLOOD CELLS (BEAKER) (test 0 /100 WBC 0-0 cvtp=117) POCT-GLUCOSE [id number] 23:51:00 Test Item Value Reference Range Comments POC-GLUCOSE METER (BEAKER) 112 mg/dL 70-110 TESTED AT [address] (test uyev=6662) [facility] [address] POCT-GLUCOSE [id number] 17:29:00 Test Item Value Reference Range Comments POC-GLUCOSE METER (BEAKER) 169 mg/dL 70-110 TESTED AT [address] (test agqk=7292) [facility] [address] POCT-GLUCOSE [id number] 13:08:00 Test Item Value Reference Range Comments POC-GLUCOSE METER (BEAKER) 112 mg/dL 70-110 TESTED AT [facility] [address] (test nzez=6807) [facility] [address] HEMOGLOBIN [id number] 08:46:00 Test Item Value Reference Range Comments HEMOGLOBIN A1C (BEAKER) (test uyyc=013) 5.1 % 4.3-6.1 [id number] 06:57:00 Test Item Value Reference Range Comments PHOSPHORUS (BEAKER) (test jblc=998) 3.2 mg/dL 2.3-4.7 [id number] 06:57:00 Test Item Value Reference Range Comments MAGNESIUM (BEAKER) (test acwy=163) 2.4 mg/dL 1.6-2.6 BASIC METABOLIC [id number] 06:57:00 Test Item Value Reference Range Comments SODIUM (BEAKER) (test 139 meq/L 136-145 gimd=079) POTASSIUM (BEAKER) (test 3.5 meq/L 3.5-5.1 tjta=962) CHLORIDE (BEAKER) (test 102 meq/L 98-107 lakh=956) CO2 (BEAKER) (test 26 meq/L 22-29 kmin=402) BLOOD UREA NITROGEN 10 mg/dL 7-21 (BEAKER) (test ljwf=360) CREATININE (BEAKER) (test 0.62 mg/dL 0.57-1.25 qbyz=054) GLUCOSE RANDOM (BEAKER) 84 mg/dL 70-105 (test fgml=481) CALCIUM (BEAKER) (test 8.7 mg/dL 8.4-10.2 aseu=762) EGFR (BEAKER) (test 96 mL/min/1.73 sq m ESTIMATED GFR IS NOT ifmp=4560) ACCURATE CREATININE CLEARANCE IN PREDICTING GLOMERULAR FILTRATION RATE. ESTIMATED GFR IS NOT APPLICABLE FOR DIALYSIS PATIENTS. CBC (HEMOGRAM ONLY)2018-06-18 06:43:00 Test Item Value Reference Range Comments WHITE BLOOD CELL COUNT (BEAKER) (test ktft=457) 7.4 K/ L 3.5-10.5 RED BLOOD CELL COUNT (BEAKER) (test oryo=997) 4.34 M/ L 3.93-5.22 HEMOGLOBIN (BEAKER) (test fmcx=703) 14.6 GM/DL 11.2-15.7 HEMATOCRIT (BEAKER) (test vdck=374) 45.2 % 34.1-44.9 MEAN CORPUSCULAR VOLUME (BEAKER) (test eeqd=838) 104.1 fL 79.4-94.8 MEAN CORPUSCULAR HEMOGLOBIN (BEAKER) (test 33.6 pg 25.6-32.2 vugy=302) MEAN CORPUSCULAR HEMOGLOBIN CONC (BEAKER) (test 32.3 GM/DL 32.2-35.5 xlwt=986) RED CELL DISTRIBUTION WIDTH (BEAKER) (test 13.2 % 11.7-14.4 qiif=122) PLATELET COUNT (BEAKER) (test bbip=236) 204 K/CU MM 150-450 MEAN PLATELET VOLUME (BEAKER) (test mzpj=086) 9.1 fL 9.4-12.3 NUCLEATED RED BLOOD CELLS (BEAKER) (test 0 /100 WBC 0-0 mksu=488) POCT-GLUCOSE [id number] 19:08:00 Test Item Value Reference Range Comments POC-GLUCOSE METER (BEAKER) 120 mg/dL 70-110 TESTED AT [address] (test wawy=5374) [place] [id number] POCT-GLUCOSE [id number] 10:26:00 Test Item Value Reference Range Comments POC-GLUCOSE METER (BEAKER) 89 mg/dL 70-110 TESTED AT [address] (test yqcj=1309) [place] [id number] 13:59:00 Test Item Value Reference Range Comments SODIUM (BEAKER) (test uqlw=339) 138 meq/L 136-145 POTASSIUM (BEAKER) (test kuze=944) 4.6 meq/L 3.5-5.1 CHLORIDE (BEAKER) (test uhgu=489) 103 meq/L 98-107 CO2 (BEAKER) (test wavg=558) 28 meq/L 22-29 [id number] 13:59:00 Test Item Value Reference Range Comments GLUCOSE RANDOM (BEAKER) (test ewxa=294) 84 mg/dL 70-105 BUN AND [id number] 13:59:00 Test Item Value Reference Range Comments BLOOD UREA NITROGEN 18 mg/dL 7-21 (BEAKER) (test fcgi=777) CREATININE (BEAKER) (test 0.73 mg/dL 0.57-1.25 iakt=437) EGFR (BEAKER) (test 79 mL/min/1.73 sq m ESTIMATED GFR IS NOT anhu=9382) ACCURATE CREATININE CLEARANCE IN PREDICTING GLOMERULAR FILTRATION RATE. ESTIMATED GFR IS NOT APPLICABLE FOR DIALYSIS PATIENTS. [id number] 13:41:00 Test Item Value Reference Range Comments HEMOGLOBIN (JENNIFERAKER) (test ucbt=735) 13.9 GM/DL 11.2-15.7 PLATELET [id number] 13:41:00 Test Item Value Reference Range Comments PLATELET COUNT (JENNIFERAKER) (test jafq=147) 191 K/CU MM 150-450
--- OUTSIDE RECORDS SUMMARY | 2018-07-07 13:05 | XMS REPORT | Clinical Summary ---
:1950 Author Organization [facility] Address [address] [place] [address] Care Team Providers Name Role Phone Dean Ga Primary Care Provider Allergies Active Allergy Reactions Severity Noted Date Comments No Known Drug Allergies Medications Medication Sig Dispensed Refills Start Date End Date Status traZODone Take 100 mg by 0 Active (DESYREL) 100 MG mouth nightly. tablet omeprazole Take 40 mg by 0 Active (PRILOSEC) 20 MG mouth daily . capsule gabapentin Take 600 mg by 0 Active (NEURONTIN) 600 MG mouth 4 (four) tablet times daily . atorvastatin Take 40 mg by 0 Active (LIPITOR) 40 MG mouth daily. tablet fluticasone-salmet Inhale 2 puffs by 0 Active esther (ADVAIR) mouth via inhaler 250-50 mcg/dose every 12 (twelve) diskus inhaler hours. HYDROcodone-acetam Take 1 tablet by 0 Active inophen (NORCO mouth every 6 10-325) 10-325 mg (six) hours as per tablet needed for Pain. ostomy supplies by Miscellaneous 0 Active (DUOLOCK CURVED route. TAIL CLOSURE) Misc DULoxetine Take 60 mg by 0 Active (CYMBALTA) 60 MG mouth daily. capsule meloxicam (MOBIC) Take 7.5 mg by 0 Active 7.5 MG tablet mouth daily. TiZANidine Take 2 mg by mouth 0 Active (ZANAFLEX) 2 MG daily. capsule budesonide-formote Inhale 2 puffs by 0 Active rol (SYMBICORT) mouth via inhaler 160-4.5 2 (two) times mcg/actuation daily. inhaler valsartan (DIOVAN) Take 320 mg by 0 Active 320 MG tablet mouth daily. acetaminophen Take 500 mg by 0 Active (TYLENOL) 500 MG mouth every 6 tablet (six) hours as needed for Pain. predniSONE Take 10 mg by 0 Active (DELTASONE) 10 MG mouth 2 (two) tablet times daily. lisinopril Take 20 mg by 0 05/27/20 Discontinued (PRINIVIL,ZESTRIL) mouth daily. 18 20 MG tablet HYDROcodone-acetam Take 1 tablet by 0 05/27/20 Discontinued inophen (NORCO mouth every 8 18 7.5-325) 7.5-325 (eight) hours as mg per needed. tabletIndications: Pain Active Problems Problem Noted Date Anal cancer 06/17/2018 Lumbar stenosis 02/04/2014 Encounters Date Type Specialty Care Team Description 06/17/2018 Surgery Robbin Moon LAPAROSCOPY,COLOSTOM MD Pravin Y CREATION/REVISION 06/17/2018 - Hospital Encounter General Internal Robbin Moon Anal cancer ( HCC) 06/19/2018 Medicine MD Pravin (Primary Dx) 06/14/2018 Hospital Encounter Pre-Admission Robbin Moon MD 06/10/2018 Hospital Encounter Robbin Moon MD 06/06/2018 Anesthesia Event Paul Hussein MD 05/27/2018 Hospital Encounter Pre-Admission Robbin Moon MD after 07/06/2017 Social History Tobacco Use Types Packs/Day Years Used Date Current Every Day Smoker 1 27 Smokeless Tobacco: Never Used Tobacco Cessation: Ready to Quit: No; Counseling Given: Yes Alcohol Use Drinks/Week oz/Week Comments Yes OCCASSIONALLY Sex Assigned at Date Recorded Not on file Job Start Date Occupation Industry Not on file Not on file Not on file Travel History Travel Start Travel End No recent travel history available. Last Filed Vital Signs Vital Sign Reading Time Taken Blood Pressure 142/64 06/19/2018 4:10 PM CDT Pulse 80 06/19/2018 4:10 PM CDT Temperature 36.3 C (97.3 F) 06/19/2018 4:10 PM CDT Respiratory Rate 18 06/19/2018 4:10 PM CDT Oxygen Saturation 92% 06/19/2018 4:10 PM CDT Inhaled Oxygen Concentration 21% 06/18/2018 7:00 PM CDT Weight 64.2 kg (141 lb 8.6 oz) 06/17/2018 10:19 AM CDT Height 160 cm (5' 3") 06/17/2018 10:19 AM CDT Body Mass Index 25.07 06/17/2018 10:19 AM CDT Plan of Treatment Not on file Implants Implanted Type Area Microbiology Manager Device Shelf Model / Identifier Expiration Serial / Date Lot Sealant,Floseal Hemostatic Matrix 10ml - [id number] Cement/Fi [employer] [id number] / Implanted: Qty: 1 on 02/04/2014 by Jey Fernandez MD ller/Chyna FORMER FUSION / sive MEDICAL Procedures Procedure Name Priority Date/Time Associated Comments Diagnosis POCT-GLUCOSE METER Routine 06/19/2018 5:52 Results for this PM CDT procedure are in the results section. POCT-GLUCOSE METER Routine 06/19/2018 11:35 Results for this AM CDT procedure are in the results section. CBC (HEMOGRAM ONLY) Routine 06/19/2018 6:24 Results for this AM CDT procedure are in the results section. PHOSPHORUS Routine 06/19/2018 6:24 Results for this AM CDT procedure are in the results section. MAGNESIUM Routine 06/19/2018 6:24 Results for this AM CDT procedure are in the results section. BASIC METABOLIC Routine 06/19/2018 6:24 Results for this PANEL (7) AM CDT procedure are in the results section. POCT-GLUCOSE METER Routine 06/18/2018 11:49 Results for this PM CDT procedure are in the results section. POCT-GLUCOSE METER Routine 06/18/2018 4:02 Results for this PM CDT procedure are in the results section. POCT-GLUCOSE METER Routine 06/18/2018 12:48 Results for this PM CDT procedure are in the results section. HEMOGLOBIN A1C Routine 06/18/2018 6:31 Results for this AM CDT procedure are in the results section. CBC (HEMOGRAM ONLY) Routine 06/18/2018 6:31 Results for this AM CDT procedure are in the results section. PHOSPHORUS Routine 06/18/2018 6:31 Results for this AM CDT procedure are in the results section. MAGNESIUM Routine 06/18/2018 6:31 Results for this AM CDT procedure are in the results section. BASIC METABOLIC Routine 06/18/2018 6:31 Results for this PANEL (7) AM CDT procedure are in the results section. POCT-GLUCOSE METER Routine 06/17/2018 7:04 Results for this PM CDT procedure are in the results section. TISSUE EXAM AP Routine 06/17/2018 4:51 Results for this PM CDT procedure are in the results section. LAPAROSCOPY,COLOSTO 06/17/2018 12:55 Anal cancer (HCC) MY PM CDT CREATION/REVISION Special Needs (CNWE) POCT-GLUCOSE METER Routine 06/17/2018 10:24 AM CDT TRANSFUSION SERVICE REPORT 05/28/2018 6:05 PM CDT - SCAN PLATELET COUNT Routine 05/27/2018 12:35 PM CDT HEMOGLOBIN Routine 05/27/2018 12:35 PM CDT ABORH, MANUAL Routine 05/27/2018 12:34 PM CDT TYPE AND SCREEN, AUTOMATED Routine 05/27/2018 12:34 PM CDT GLUCOSE Routine 05/27/2018 12:34 PM CDT BUN AND CREATININE Routine 05/27/2018 12:34 PM CDT ELECTROLYTE PANEL Routine 05/27/2018 12:34 PM CDT after 07/06/2017 Results POC-Glucose meter (06/19/2018 5:52 PM CDT)Only the most recent of7 resultswithin the time period is included. POC-Glucose Meter 136 (H)Comment: TESTED AT 70 - 110 mg/dL [facility] [address] [facility] [address] Specimen Blood Performing Organization Address City/State/Zipcode Phone Number [address] [address] [phone] CENTER CBC (Hemogram only) (06/19/2018 6:24 AM CDT)Only the most recent of2 resultswithin the time period is included. WBC 6.2 3.5 - 10.5 K/L [facility] RBC 4.02 3.93 - 5.22 M/L [facility] Hemoglobin 13.7 11.2 - 15.7 GM/DL [facility] Hematocrit 40.2 34.1 - 44.9 % [facility] MCV 100.0 (H) 79.4 - 94.8 fL [facility] MCH 34.1 (H) 25.6 - 32.2 pg [facility] MCHC 34.1 32.2 - 35.5 GM/DL [facility] RDW 12.6 11.7 - 14.4 % [facility] Platelets 192 150 - 450 K/CU MM [facility] MPV 9.1 (L) 9.4 - 12.3 fL [facility] nRBC 0 0 - 0 /100 WBC [facility] Specimen Blood - Arm, Right Performing Organization Address [facility] Phone Number [address] [address] CENTER Phosphorus (06/19/2018 6:24 AM CDT)Only the most recent of2 resultswithin the time period is included. Phosphorus 3.2 2.3 - 4.7 mg/dL [facility] Specimen Blood - Arm, Right Performing Organization Address [facility] Cent[facility]ode Phone Number [address] [address] [phone] CENTER Magnesium (06/19/2018 6:24 AM CDT)Only the most recent of2 resultswithin the time period is included. Magnesium 2.2 1.6 - 2.6 mg/dL [facility] Specimen Blood - Arm, Right Performing Organization Address [facility] Cent[facility] Phone Number [address] [address] CENTER Basic Metabolic Panel (06/19/2018 6:24 AM CDT)Only the most recent of2 resultswithin the time period is included. Sodium 132 (L) 136 - 145 meq/L [facility] Potassium 3.3 (L) 3.5 - 5.1 meq/L [facility] Chloride 99 98 - 107 meq/L [facility] CO2 24 22 - 29 meq/L [facility] BUN 11 7 - 21 mg/dL [facility] Creatinine 0.61 0.57 - 1.25 mg/dL [facility] Glucose 112 (H) 70 - 105 mg/dL [facility] Calcium 8.7 8.4 - 10.2 mg/dL [facility] EGFR 98Comment: ESTIMATED GFR IS mL/min/1.[address] [facility] NOT ACCURATE CREATININE [facility] CLEARANCE IN PREDICTING GLOMERULAR FILTRATION RATE. ESTIMATED GFR IS NOT APPLICABLE FOR DIALYSIS PATIENTS. Specimen Blood - Arm, Right Performing Organization Address City/State/Zipcode Phone Number [address] [address] [place] Hemoglobin A1c (06/18/2018 6:31 AM CDT) Hemoglobin A1C 5.1 4.3 - 6.1 % [facility] Specimen Blood Performing Organization Address City/[facility]/Zipcode Phone Number [facility] [address] [place] [phone] [place] Tissue Exam (06/17/2018 4:51 PM CDT) Case Report Surgical Pathology Report Case: [id number] [facility] Authorizing Provider:Robbin Moon MDCollected: 06/17/2018 1651 MEDICAL CENTER Ordering Location: [facility] PERIOPERATIVE Received: 06/18/2018 0815 SERVICES Pathologist: Barb Sandoval MD Specimens: A) - Soft Tissue, Other, RECTAL MASS R/O ANAL CANCER #1 B) - Soft Tissue, Other, RECTAL MASS R/O ANAL CANCER #2 C) - Soft Tissue, Other, RECTAL MASS R/O ANAL CANCER #3 DIAGNOSIS A. RECTUM, SOFT TISSUE , MASS, EXCISION: [facility] - CAUTARIZED SQUAMOUS EPITHELIUM WITH ULCERATION, GRANULATION TISSUE [facility] - NEGATIVE FOR DYSPLASIA OR MALIGNANCY B. RECTUM, SOFT TISSUE , MASS, EXCISION: - FIBROMUSCULAR TISSUE WITH FOCAL FIBRINOPURULENT EXUDATE - NEGATIVE FOR MALIGNANCY C. RECTUM, SOFT TISSUE , MASS, EXCISION: - PARTLY CAUTARIZED SQUAMOUS EPITHELIUM WITH ULCERATION, GRANULATION TISSUE AND REACTIVE CHANGES - NEGATIVE FOR DYSPLASIA OR MALIGNANCY Signing Pathologist Direct Phone Line: [phone] CPT Code(s) 00757 X 3 [facility] CLINICAL HISTORY Anal cancer, rule out anal [facility] cancer [facility] SPECIMEN SOURCE A. Rectal mass biopsy #1. B. [facility] Rectal mass #2. C. Rectal mass [facility] GROSS DESCRIPTION Specimen is received in three parts all labeled with the patient's information. [facility] Specimen A: Labeled "rectal mass" consists of [...] is incorporated in the diagnostic report above: [facility] Performed [facility]ENTER Specimen Tissue - Soft Tissue, Other Performing Organization Address City/State/Zipcode Phone Number [facility] [address] [place] [address] CENTER TRANSFUSION SERVICE REPORT - SCAN (05/28/2018 6:05 PM CDT) Narrative Performed At Platelet count (05/27/2018 12:35 PM CDT) Platelets 191 150 - 450 K/CU MM [facility] Specimen Blood Performing Organization Address City/[facility]/Zipcode Phone Number [address] [address] CENTER Hemoglobin (05/27/2018 12:35 PM CDT) Hemoglobin 13.9 11.2 - 15.7 GM/DL [facility] Specimen Blood Performing Organization Address City/[facility] Centercode Phone Number [address] [address] CENTER Type and screen, automated (05/27/2018 12:34 PM CDT) Ab Scrn NEGATIVEComment: done on echo [facility] Specimen Blood Performing Organization Address [facility] Centercode Phone Number [address] [address] ABORH, manual (05/27/2018 12:34 PM CDT) ABO Grouping B [facility] Rh Factor POS [facility] Specimen Blood Performing Organization Address [facility] Centercode Phone Number [address] [address] [phone] BUN and Creatinine (05/27/2018 12:34 PM CDT) BUN 18 7 - 21 mg/dL [facility] Creatinine 0.73 0.57 - 1.25 mg/dL [facility] EGFR 79Comment: ESTIMATED GFR IS mL/min/1.[address] [facility] NOT ACCURATE CREATININE [facility] CLEARANCE IN PREDICTING GLOMERULAR FILTRATION RATE. ESTIMATED GFR IS NOT APPLICABLE FOR DIALYSIS PATIENTS. Specimen Blood Performing Organization Address [facility]/Zipcode Phone Number [address] [address] CENTER Glucose (05/27/2018 12:34 PM CDT) Glucose 84 70 - 105 mg/dL [facility] Specimen Blood Performing Organization Address City/State/Zipcode Phone Number [address] [phone] [place] Electrolytes (05/27/2018 12:34 PM CDT) Sodium 138 136 - 145 meq/L [facility] Potassium 4.6 3.5 - 5.1 meq/L [facility] Chloride 103 98 - 107 meq/L [facility] CO2 28 22 - 29 meq/L [facility] Specimen Blood Performing Organization Address City/State/[facility] Centercode Phone Number [address] [phone] CENTER after 07/06/2017 Insurance Payer Benefit Plan / Group Subscriber ID Type Phone Address MEDICARE MEDICARE A B xxxxxxxxxxx Medicare [facility] [employer] SENIOR SUPPLEMENTAL xxxxxxxxxx SUPPLEMENT/INDIVIDUAL Advance Directives For more information, please contact:[address] [phone] Code Status Date Activated Date Inactivated Comments Full Code 06/17/2018 10:15 PM 06/20/2018 12:50 AM This code status was determined by: Patient Code ONE 02/04/2014 1:55 PM 02/04/2014 8:05 PM All possible means of support, including: cardiac massage, mechanical ventilation, and defibrillation will be used to support life. Code ONE 02/04/2014 7:56 AM 02/04/2014 1:55 PM All possible means of support including;cardiac massage, mechanical ventilation, and defibrillation will be used to support life.
[2018-07-07 13:57] LABS: Absolute Lymphocytes (CBC) 0.5 K/uL (0.7-4.9); Absolute Monocytes 0.6 K/uL (0.1-1.3); Absolute Neutrophil 3.1 K/uL (1.8-8.0); Basophils % 0.3 % (0-1.3); Eosinophils % 1.6 % (0-4.4); Hematocrit 45.6 % (36.0-45.0); Lymphocytes % 11.7 % (15.3-44.8); MCH 33.8 pg (27.0-35.0); MCV 99.8 fL (80-100); MPV 7.5 fL (7.6-11.3); Monocytes % 13.6 % (3.3-12.3); RBC Red Blood Cell Count 4.56 M/uL (3.86-4.86)
[2018-07-07] MEDS ORDERED: LEVALBUTEROL 1.25 MG/3 ML NEB ONE (13:59)
[2018-07-07 14:19] LABS: Albumin 3.4 g/dL (3.4-5.0); Bilirubin Direct 0.3 mg/dL (0-0.2); Bilirubin Total 0.9 mg/dL (0.2-1.0); Magnesium 2.4 mg/dL (1.8-2.4); Potassium 3.3 mmol/L (3.5-5.1); Protein, Total 7.7 g/dL (6.4-8.2); Troponin (Emerg Dept Use Only) 0.02 ng/mL (0.0-0.045)
[2018-07-07 14:22] LABS: Protime INR 1.06
[2018-07-07] MEDS ORDERED: POTASSIUM CL SA 10 MEQ TAB PO ONE (15:53)
[2018-07-07] MEDS ORDERED: predniSONE 20 MG TAB ONE (15:54)
--- NOTE | 2018-07-07 15:56 | ER ---
Nurse's Notes [facility] Name: Jess Terry Age: 68 yrs Sex: Female : 1950 Arrival Date: 07/07/2018 Time: 13:04 Bed 16 Private MD: Dean Natarajan R Diagnosis: Acute upper respiratory infection, unspecified Presentation: 07/07 13:09 Presenting complaint: Patient states: Cough for three days, subjective fever for three la1 days, decreased appetite. Transition of care: patient was not received from another setting of care. Onset of symptoms was July 07, 2018. Risk Assessment: Do you want to hurt yourself or someone else? Patient reports no desire to harm self or others. Initial Sepsis Screen: Does the patient meet any 2 criteria? No. Patient's initial sepsis screen is negative. Does the patient have a suspected source of infection? No. Patient's initial sepsis screen is negative. Care prior to arrival: None. 13:09 Method Of Arrival: Wheelchair la1 13:09 Acuity: MARE 3 la1 Historical: - Allergies: 13:09 No Known Allergies; la1 - Home Meds: 13:25 atorvastatin 40 mg Oral tab 1 tab once daily [Active]; duloxetine 60 mg Oral cpDR 1 cap rb1 once daily [Active]; gabapentin 600 mg Oral tab 1 tab 3 times per day [Active]; glimepiride 1 mg Oral tab 1 tab once daily [Active]; hydrocodone-acetaminophen 10-325 mg Oral tab 1 tab every 4-6 hours [Active]; meloxicam 7.5 mg Oral tab 1 tab once daily [Active]; omeprazole 20 mg Oral cpDR 1 cap once daily [Active]; Symbicort 80-4.5 mcg/actuation inhalation HFAA 2 puffs 2 times per day [Active]; tizanidine 2 mg Oral cap 2 caps every 6 hours [Active]; trazodone 100 mg Oral tab 1 tab 2 times per day [Active]; Tylenol Extra Strength 500 mg Oral tab 1 tab every 4-6 hours [Active]; valsartan 320 mg Oral tab 1 tab once daily [Active]; - PMHx: 13:09 COPD; Hyperlipidemia; Hypertension; la1 - PSHx: 13:25 back; Hysterectomy; rb1 - Immunization history:: Adult Immunizations up to date. - Social history:: Smoking status: Patient uses tobacco products, smokes one pack cigarettes per day. - Ebola Screening: : No symptoms or risks identified at this time. Screenin:25 Abuse screen: Denies threats or abuse. Nutritional screening: decreased appetite. rb1 Tuberculosis screening: No symptoms or risk factors identified. Fall Risk None identified. Assessment: 13:25 General: Appears uncomfortable, Behavior is calm, cooperative. General: Reports fever rb1 for. Pain: Complains of pain in generalize Pain currently is 6 out of 10 on a pain scale. Pain began x 3 days. Neuro: Level of Consciousness is awake, alert, obeys commands, Oriented to person, place, time, situation. Cardiovascular: Capillary refill < 3 seconds is brisk in bilateral fingers. Respiratory: Reports cough that is productive, white Airway is patent Respiratory effort is even, unlabored, Respiratory pattern is regular, symmetrical. GI: No signs and/or symptoms were reported involving the gastrointestinal system. Reports Wears a colostomy bag. : No signs and/or symptoms were reported regarding the genitourinary system. Derm: Skin is pink, warm \\T\\ dry. 14:23 Reassessment: Patient appears in no apparent distress at this time. Patient and/or rb1 family updated on plan of care and expected duration. Pain level reassessed. Patient is alert, oriented x 3, equal unlabored respirations, skin warm/dry/pink. 15:11 Reassessment: Patient appears in no apparent distress at this time. No changes from rb1 previously documented assessment. 15:19 Reassessment: Patient appears in no apparent distress at this time. Patient and/or rb1 family updated on plan of care and expected duration. Pain level reassessed. Patient is alert, oriented x 3, equal unlabored respirations, skin warm/dry/pink. Pt. denies chest pain. Pt. stated, "I have two blocks and Dr. Dai sent out memos to other doctors telling them not to do anymore tests on my heart. Dr. Dai told me that I won't have any issue with this condition until I'm in my 80's." Provider notified. 16:15 Reassessment: Patient appears in no apparent distress at this time. Patient and/or rb1 family updated on plan of care and expected duration. Pain level reassessed. Patient is alert, oriented x 3, equal unlabored respirations, skin warm/dry/pink. Patient denies pain at this time. 16:30 Reassessment: Discharge pending due to pt. needing to change her colostomy bag. rb1 Vital Signs: 13:11 BP 127 / 76; Pulse 105; Resp 24; Temp 97.0; Pulse Ox 93% on R/A; Weight 68.04 kg; la1 Height 5 ft. 3 in. (160.02 cm); 14:00 BP 136 / 71; Pulse 107; Resp 25; Pulse Ox 95% on R/A; rb1 15:00 BP 133 / 79; Pulse 108; Resp 20; Pulse Ox 96% on R/A; rb1 16:00 BP 136 / 73; Pulse 101; Resp 20; Pulse Ox 98% on R/A; Pain 0/10; rb1 13:11 Body Mass Index 26.57 (68.04 kg, 160.02 cm) la1 ED Course: 13:04 Patient arrived in ED. as 13:04 Dean Natarajan MD is Private Physician. as 13:09 Arm band placed on right wrist. la1 13:10 Triage completed. la1 13:18 Goyo Dos Santos PA is PHCP. jmm 13:18 Donte English MD is Attending Physician. m 13:25 Patient has correct armband on for positive identification. Bed in low position. Call rb1 light in reach. Side rails up X 1. manager monitoring on. Pulse ox on. NIBP on. 13:26 Marisol Bernard, RN is Primary Nurse. rb1 14:23 EKG done, by ED staff, reviewed by Donte English MD. ds4 14:42 Chest Pa And Lat (2 Views) XRAY In Process Unspecified. EDMS 15:18 EKG done, by ED staff, reviewed by Donte English MD. ds4 15:54 Dean Natarajan MD is Referral Physician. jmm 16:47 No provider procedures requiring assistance completed. IV discontinued, intact, rb1 bleeding controlled, No redness/swelling at site. Pressure dressing applied. Administered Medications: 13:56 Drug: Xopenex (3) 1.25 mg Route: Inhalation; rb1 14:40 Follow up: Response: No adverse reaction; Marked relief of symptoms rb1 15:53 Drug: predniSONE 60 mg Route: PO; rb1 16:20 Follow up: Response: No adverse reaction rb1 15:53 Drug: Potassium Chloride 40 mEq Route: PO; rb1 16:20 Follow up: Response: No adverse reaction rb1 Outcome: 15:55 Discharge ordered by . jayshree 16:47 Discharged to home via wheelchair, with family. rb1 16:47 Condition: stable 16:47 Discharge instructions given to patient, Instructed on discharge instructions, follow up and referral plans. medication usage, Demonstrated understanding of instructions, follow-up care, medications, Prescriptions given X 3. 16:48 Patient left the ED. rb1 Signatures: Dispatcher [employer] EDMS Goyo Dos Santos PA PA jmm Martinez, Amelia as Swanson, Donovan ds4 Tanner Fitch RN RN laMarisol Peres RN RN rb1 Corrections: (The following items were deleted from the chart) 16:44 13:25 GI: No signs and/or symptoms were reported involving the gastrointestinal system. rb1 rb1
--- NOTE | 2018-07-07 15:56 | EDPHYS ---
Physician Documentation [facility] Name: Jess Terry Age: 68 yrs Sex: Female : 1950 Arrival Date: 07/07/2018 Time: 13:04 Bed 16 Private MD: Dean Natarajan R ED Physician Donte English HPI: 07/07 13:28 This 68 yrs old Female presents to ER via Wheelchair with complaints of Flu jmm Symptoms. 13:28 The patient or guardian reports cough. Onset: The symptoms/episode began/occurred jmm gradually, 3 day(s) ago. Associated signs and symptoms: Pertinent positives: rhinorrhea, sore throat. This is a 68 year old female with a history of COPD, HLP, HTN that presents to the ED with 3 days of cough congestion. Denies fever, denies vomiting, denies abdominal pain. . Historical: - Allergies: 13:09 No Known Allergies; la1 - Home Meds: 13:25 atorvastatin 40 mg Oral tab 1 tab once daily [Active]; duloxetine 60 mg Oral cpDR 1 cap rb1 once daily [Active]; gabapentin 600 mg Oral tab 1 tab 3 times per day [Active]; glimepiride 1 mg Oral tab 1 tab once daily [Active]; hydrocodone-acetaminophen 10-325 mg Oral tab 1 tab every 4-6 hours [Active]; meloxicam 7.5 mg Oral tab 1 tab once daily [Active]; omeprazole 20 mg Oral cpDR 1 cap once daily [Active]; Symbicort 80-4.5 mcg/actuation inhalation HFAA 2 puffs 2 times per day [Active]; tizanidine 2 mg Oral cap 2 caps every 6 hours [Active]; trazodone 100 mg Oral tab 1 tab 2 times per day [Active]; Tylenol Extra Strength 500 mg Oral tab 1 tab every 4-6 hours [Active]; valsartan 320 mg Oral tab 1 tab once daily [Active]; - PMHx: 13:09 COPD; Hyperlipidemia; Hypertension; la1 - PSHx: 13:25 back; Hysterectomy; rb1 - Immunization history:: Adult Immunizations up to date. - Social history:: Smoking status: Patient uses tobacco products, smokes one pack cigarettes per day. - Ebola Screening: : No symptoms or risks identified at this time. ROS: 13:28 Eyes: Negative for injury, pain, redness, and discharge. jmm 13:28 Neck: Negative for injury, pain, and swelling, Cardiovascular: Negative for chest pain, palpitations, and edema. 13:28 Abdomen/GI: Negative for abdominal pain, nausea, vomiting, diarrhea, and constipation, Back: Negative for injury and pain, MS/Extremity: Negative for injury and deformity, Skin: Negative for injury, rash, and discoloration, Neuro: Negative for headache, weakness, numbness, tingling, and seizure. 13:28 Constitutional: Positive for chills. 13:28 ENT: Positive for sinus congestion. 13:28 Respiratory: Positive for cough. 13:28 All other systems are negative. Exam: 13:28 Head/Face: atraumatic. Eyes: EOMI, no conjunctival erythema appreciated ENT: Moist jmm Mucus Membranes Neck: Trachea midline, Supple Chest/axilla: Normal chest wall appearance and motion. Cardiovascular: Regular rate and rhythm. No edema appreciated 13:28 Back: Normal ROM Skin: General appearance color normal MS/ Extremity: Moves all extremities, no obvious deformities appreciated, no edema noted to the lower extremities Neuro: Awake and alert, normal gait Psych: Behavior is normal, Mood is normal, Patient is cooperative and pleasant 13:28 Constitutional: The patient appears in no acute distress, alert, awake. 13:28 Cardiovascular: Rate: normal, Rhythm: regular, Pulses: no pulse deficits are appreciated. 13:28 Respiratory: the patient does not display signs of respiratory distress, Respirations: normal, Breath sounds: wheezing: that is mild. Vital Signs: 13:11 BP 127 / 76; Pulse 105; Resp 24; Temp 97.0; Pulse Ox 93% on R/A; Weight 68.04 kg; la1 Height 5 ft. 3 in. (160.02 cm); 14:00 BP 136 / 71; Pulse 107; Resp 25; Pulse Ox 95% on R/A; rb1 15:00 BP 133 / 79; Pulse 108; Resp 20; Pulse Ox 96% on R/A; rb1 16:00 BP 136 / 73; Pulse 101; Resp 20; Pulse Ox 98% on R/A; Pain 0/10; rb1 13:11 Body Mass Index 26.57 (68.04 kg, 160.02 cm) la1 MDM: 13:28 Patient medically screened. jmm 15:54 Data reviewed: vital signs, nurses notes. Counseling: I had a detailed discussion with [facility] the patient and/or guardian regarding: the historical points, exam findings, and any diagnostic results supporting the discharge/admit diagnosis, lab results, radiology results, the need for outpatient follow up, to return to the emergency department if symptoms worsen or persist or if there are any questions or concerns that arise at home. 15:54 Data interpreted: Pulse oximetry: on room air is 98 %. Interpretation: normal. [facility] 15:54 ED course: Patient states feeling better. Denies chest pain. Symptoms appear to be most [facility] likely viral with an exacerbation of COPD. Patient will be prescribed oral antibiotics and steroids and advised to closely follow u with PCP. Given strict return precautions. Patient and family understood and agreed with the plan of care. . 07/07 13:29 Order name: Basic Metabolic Panel; Complete Time: 14:29 [facility] 07/07 13:29 Order name: CBC with Diff; Complete Time: 14:11 [facility] 07/07 13:29 Order name: LFT's; Complete Time: 14:29 [facility] 07/07 13:29 Order name: Magnesium; Complete Time: 14:29 [facility] 07/07 13:29 Order name: NT PRO-BNP; Complete Time: 14:29 [facility] 07/07 13:29 Order name: PT-INR; Complete Time: 14:51 [facility] 07/07 13:29 Order name: Troponin (emerg Dept Use Only); Complete Time: 14:29 [facility] 07/07 13:29 Order name: Blood Culture Adult (2) [facility] 07/07 13:29 Order name: Lactate; Complete Time: 14:29 [facility] 07/07 13:29 Order name: Procalcitonin; Complete Time: 14:51 [facility] 07/07 13:29 Order name: Influenza Screen (a \T\ B); Complete Time: 14:51 [facility] 07/07 13:31 Order name: Chest Pa And Lat (2 Views) XRAY; Complete Time: 16:04 [facility] 07/07 13:29 Order name: EKG; Complete Time: 13:30 [facility] 07/07 13:29 Order name: Cardiac monitoring; Complete Time: 14:23 [facility] 07/07 13:29 Order name: EKG - Nurse/Tech; Complete Time: 14:23 [facility] 07/07 13:29 Order name: IV Saline Lock; Complete Time: 14:15 [facility] 07/07 13:29 Order name: Labs collected and sent; Complete Time: 14:15 [facility] 07/07 13:29 Order name: O2 Per Protocol; Complete Time: 14:15 [facility] 07/07 13:29 Order name: O2 Sat Monitoring; Complete Time: 14:15 [facility] 07/07 14:58 Order name: EKG - Nurse/Tech; Complete Time: 15:17 [facility] Administered Medications: 13:56 Drug: Xopenex (3) 1.25 mg Route: Inhalation; rb1 14:40 Follow up: Response: No adverse reaction; Marked relief of symptoms rb1 15:53 Drug: predniSONE 60 mg Route: PO; rb1 16:20 Follow up: Response: No adverse reaction rb1 15:53 Drug: Potassium Chloride 40 mEq Route: PO; rb1 16:20 Follow up: Response: No adverse reaction rb1 Disposition: 18:03 Co-signature as Attending Physician, Donte English MD I agree with the assessment and kdr plan of care. Disposition: 07/07/18 15:55 Discharged to Home. Impression: Acute upper respiratory infection, unspecified. - Condition is Stable. - Discharge Instructions: Chronic Obstructive Pulmonary Disease Exacerbation. - Prescriptions for Prednisone 20 mg Oral Tablet - take 3 tablet by ORAL route once daily for 5 days; 15 tablet. Zithromax Z- Jeronimo 250 mg Oral Tablet - take 1 tablet by ORAL route as directed for 5 days Day 1 - take two (2) tablets one time. Day 2, 3, 4 , 5 take one (1) tablet once daily.; 6 tablet. Tamiflu 75 mg Oral Capsule - take 1 tablet by ORAL route every 12 hours for 5 days; 10 tablet. - Medication Reconciliation Form, Thank You Letter, Antibiotic Education, Prescription Opioid Use form. - Follow up: Dean Natarajan MD; When: 1 - 2 days; Reason: Recheck today's complaints, Continuance of care, Re-evaluation by your physician. Signatures: Dispatcher [employer] EDMS Donte English MD MD kdr Mickail, Joel, PA PA [facility] Tanner Fitch RN RN laMarisol Peres, RN RN rb1 Corrections: (The following items were deleted from the chart) 16:48 15:55 07/07/2018 15:55 Discharged to Home. Impression: Acute upper respiratory rb1 infection, unspecified. Condition is Stable. Forms are Medication Reconciliation Form, Thank You Letter, Antibiotic Education, Prescription Opioid Use. Follow up: Dean Natarajan; When: 1 - 2 days; Reason: Recheck today's complaints, Continuance of care, Re-evaluation by your physician. jayshree
--- NOTE | 2018-07-07 16:01 | RAD REPORT ---
EXAM DESCRIPTION: RAD - Chest Pa And Lat (2 Views) - 07/07/2018 2:46 pm CLINICAL HISTORY: Cough and congestion, decreased appetite COMPARISON: December 2017 TECHNIQUE: PA and lateral views of the chest were obtained. FINDINGS: The lungs are clear of a peripheral mass or consolidation. Patient does have prominent int erstitial lung markings. Patient has baseline fibrosis. Minimal interstitial edema or infiltrate coul d be masked by the underlying chronic interstitial lung disease. Right-sided catheter has been remove d since prior imaging. Heart size is normal and central vasculature is within normal limits. No pl eural effusion or pneumothorax seen. No acute bony finding noted. No aortic abnormality. IMPRESSION: No focal mass or consolidation. Prominent interstitial markings suspicious for interstitial edema or infiltrate superimposed on a bas sae fibrosis.
--- NOTE | 2018-07-08 06:53 | EKG ---
Test Date: 2018-07-07 Test Time: 16:14:39 Document Image Technician: KELIN MEASUREMENT RESULTS: Intervals: Rate: 107 TN: 160 QRSD: 136 QT: 398 QTc: 531 [place]: P: 75 TN: 160 QRS: 19 T: 90 INTERPRETIVE STATEMENTS: Sinus tachycardia with premature ventricular complexes Biatrial enlargement Left bundle branch block Abnormal ECG Compared to ECG 12/10/2017 20:09:26 Ventricular premature complex(es) now present Sinus rhythm no longer present Electronically Signed On 07-08-18 06:53:18 SENIOR TECHNICAL EDITOR by Jacoby Nielson
--- NOTE | 2018-07-08 08:49 | EKG ---
Test Date: 2018-07-07 Test Time: 15:18:05 Waste Specialist: KELIN MEASUREMENT RESULTS: Intervals: Rate: 106 NC: 158 QRSD: 136 QT: 402 QTc: 533 [place]: P: 76 NC: 158 QRS: 39 T: 84 INTERPRETIVE STATEMENTS: Sinus tachycardia with premature atrial complexes Right atrial enlargement Left bundle branch block Abnormal ECG Compared to ECG 12/10/2017 20:09:26 Atrial premature complex(es) now present Sinus rhythm no longer present Electronically Signed On 07-08-18 08:49:14 REPTILE FARMER by Jacoby Nielson
== END 2018-07-07 16:48 | disposition home or self-care (01) ==
LOC: ER 13:02
DX: J06.9 Acute upper respiratory infection, unspecified (principal); I10 Essential (primary) hypertension; J44.9 Chronic obstructive pulmonary disease, unspecified; F17.210 Nicotine dependence, cigarettes, uncomplicated; E78.5 Hyperlipidemia, unspecified
CPT/HCPCS: 36415; 71046; 80048; 80076; 83605; 83735; 83880; 84145; 84484; 85025; 85610; 87040; 87804; 93005; 99285; J7512